=== PATIENT | female | born 1985 | race Caucasian/White ===

== ENCOUNTER → 2024-06-20 | Outpatient (CLI) | payer OTHER, SELFPAY ==
[2024-06-20 10:12] LABS: Vitamin D,25 Hydroxy 97.7 ng/mL
[2024-06-20 11:49] LABS: Anion Gap 8 (5-15); BUN 14 mg/dL (7-18); BUN/Creat Ratio 15.9 RATIO (10-20); Calcium,Total 9.4 mg/dL (8.5-10.1); Chloride 104 mmol/L (98-107); Creatinine, Serum 0.88 mg/dL (0.55-1.02); EST Glomerular Filtration Rate 76 mL/min (>60); Est Glom Filt Rate - Afr Amer 92 mL/min (>60); Glucose 94 mg/dL (74-106); Sodium Level 137 mmol/L (136-145)
== END | disposition home or self-care (01) ==
PROVIDERS: PCP Nurse Practitioner Family; Referring Provider Internal Medicine Endocrinology, Diabetes & Metabolism; Visit Provider Internal Medicine Endocrinology, Diabetes & Metabolism
DX: E03.8 Other specified hypothyroidism (principal); E55.9 Vitamin D deficiency, unspecified
CPT/HCPCS: 36415; 80048; 82306; 84443

== ENCOUNTER 2024-06-30 19:53 | Emergency (ER) | payer OTHER, SELFPAY ==
[2024-06-30 19:54] VITALS: BP 149/89; PULSE 112; RESP 18; TEMP 36.8; O2SAT 97; BMI 30.4
--- NOTE | 2024-06-30 19:59 | EKG12_ITS ---
Test Reason : DYSRHYTHMIA Blood Pressure : / mmHG Vent. Rate : 104 BPM Atrial Rate : 104 BPM P-R Int : 146 ms QRS Dur : 080 ms QT Int : 354 ms P-R-T Axes : 064 066 069 degrees QTc Int : 465 ms Sinus tachycardia Low voltage QRS Borderline ECG Confirmed by JOE BAEZ, BLUE ([id number]), publication editor JULIEN DIETZ ([id number]) on 07/02/2024 8:09:05 AM Referred By: Confirmed By:BLUE DIAZ MD
[2024-06-30] MEDS: Ondansetron 4 MG/2 ML Vial IV (20:35)
[2024-06-30] MEDS: Ketorolac 15 MG/ML Vial IV (20:35)
[2024-06-30] MEDS: Morphine 4 MG/ML Syringe IV (20:36)
[2024-06-30 20:39] VITALS: O2SAT 96
[2024-06-30 20:39] LABS: Absolute Lymphocyte Count 3.19 X10^3/uL (0.83-4.51); Absolute Neutrophil Count 5.2 X10^3/uL (2.0-7.7); Basophil# 0.05 X10^3/uL; Basophil% 0.5 % (0-1); Eosinophil# 0.12 X10^3/uL; Eosinophils% 1.3 % (0-5); Hematocrit 39.3 % (37-47); Hemoglobin 13.3 g/dL (12.0-15.0); Lymphocyte # 3.19 X10^3/ul (0.83-4.51); Lymphocyte % 34.8 % (19-41); Mean Corp Hgb Conc 33.8 g/dL (32-36); Mean Corpuscular Hgb 31.1 pg (27.0-32.0); Mean Platelet Vol. 9.8 fl (6.2-12.0); Monocyte# 0.61 X10^3/uL; Monocyte% 6.7 % (0-10); NRBC Flagged by Analyzer 0 % (0-5); Neutrophil # 5.17 X10^3/uL (2.7-7.7); Neutrophil % 56.5 % (47-70); Platelet Count 301 K/mm3 (150-450); RBC Distribution Width CV 12.3 % (11.6-14.6); RBC Distribution Width SD 41.1 fl (35.1-43.9); Red Blood Count 4.27 M/mm3 (4.2-5.4); White Blood Count 9.2 K/mm3 (4.4-11.0)
[2024-06-30 20:42] LABS: Internal QC Validated? YES +Cl - CLEAR BKGD; Pregnancy, Serum, hCG Quali. NEGATIVE Negative
[2024-06-30 20:48] LABS: ALB/GLOB Ratio 1.1 RATIO (0.9-2.4); AST(SGOT) 16 U/L (15-37); Alanine Aminotransfer ALT/SGPT 19 U/L (13-56); Albumin, Serum 3.9 g/dL (3.2-5.0); Alkaline Phosphatase 44 U/L (45-117); Anion Gap 9 (5-15); BUN 17 mg/dL (7-18); BUN/Creat Ratio 18.2 RATIO (10-20); Calcium,Total 9.3 mg/dL (8.5-10.1); Chloride 105 mmol/L (98-107); Creatinine, Serum 0.93 mg/dL (0.55-1.02); EST Glomerular Filtration Rate 71 mL/min (>60); Est Glom Filt Rate - Afr Amer 86 mL/min (>60); Globulin 3.5 g/dL (2.2-4.2); Glucose 135 mg/dL (74-106); Lipase 120 U/L (13-75); Potassium 3.6 mmol/L (3.5-5.1); Protein, Total 7.4 g/dL (6.4-8.2); Sodium Level 139 mmol/L (136-145); Troponin-I HS < 3 pg/mL (3.0-54.0)
--- NOTE | 2024-06-30 20:55 | RAD_ITS ---
INDICATION: chest pain EXAMINATION/TECHNIQUE: X-RAY - XR Chest 1 View COMPARISON: No relevant prior comparison study available FINDINGS: LINES/DEVICES: None. LUNGS: The lungs are well expanded. No consolidation, edema or effusion. No pneumothorax. MEDIASTINUM AND CARDIOVASCULAR STRUCTURES: Cardiac silhouette not enlarged. Central airways and mediastinal contour are unremarkable. BONES AND SOFT TISSUES: No acute abnormality. RAD/Chest 1 View (Portable) IMPRESSION: No acute pulmonary finding. Electronically Signed: Anthony Ellison MD at 21:13 EDT ,
[2024-06-30 20:57] LABS: Bacteria 0 SEEN /hpf (None Seen); Mucous, Urine 0 SEEN /hpf (<or=2+)
[2024-06-30 21:02] LABS: Color, Urine Yellow (Yellow); Glucose, Dipstick Normal (Normal); Ketone-Dipstick Negative (Negative); Leukocyte Esterase-Dipstick Negative /ul (Negative); Nitrite-Dipstick Negative (Negative); Occult Blood-Urine Negative /ul (Negative); Protein-Dipstick Negative (Negative); Specific Gravity, Urine 1.015 (1.002-1.030); Urine Bilirubin Dipstick Negative (Negative); Urine Clarity Clear (Clear); Urine Urobilinogen Normal (Normal)
--- NOTE | 2024-06-30 21:03 | EX.ED.DYSGE1 ---
HPI History of Present Illness Chief Complaint: Abd Pain Detail of Chief Complaint: Right upper quadrant abdominal pain Informant: patient and spouse/S.O. Onset/Context/Timing Onset: Today and Hours Context: Sudden Onset Timing: Continuous and Waxes and wanes Quality: Colicky Location: Right upper quadrant radiating through to her back Current Severity: Severe Maximum Severity: Severe Worsened by: Having Posta with red sauce buttered bread sticks and Ga's cup Relieved by: Nothing Associated Symptoms Associated Symptoms: Nausea Narrative Narrative: Patient is a 39-year-old woman. She has no strict past medical history. She has no allergies. She had pasta with red sauce with butter garlic bread sticks. She started to have pain approximate 2 hours afterwards. She then had a recedes cup which made the pain worse. Pain is in the right upper quadrant radiates bilaterally to the central mid back. She never experienced anything like this before. She denies cardiac respiratory symptoms. She denies diarrhea. She does report nausea. She has had no vomiting. She denies history of renal or ureteral calculus. Denies dysuria, frequency, urgency or hematuria. Prior similar symptoms: No Recent Illness/Hospitalization: No [facility] Medical History Interstitial cystitis Raynaud disease Hypothyroid Home Medications ?Medication ?Instructions ?Recorded ?Last Taken ?Type hydrocodone-acetaminophen 5-325mg 1 tab PO Q6H PRN PRN Pain 3 days 06/30/24 Unknown Rx 5mg-325mg #10 TABLETS naproxen 500 mg tablet 500 mg PO BID #14 tabs 06/30/24 Unknown Rx Allergy/AdvReac Type Severity Reaction Status Date / Time No Known Allergies Allergy Verified 06/30/24 20:00 Social History Smoking Status: Former smoker ROS ROS ED Constitutional Constitutional ED: Denies chills, fever(s), subjective or sweats ENT ENT ED: Denies rhinorrhea or sore throat Cardiovascular Cardiovascular: Denies chest pain or palpitations Respiratory/Chest Respiratory/Chest: Denies cough, dyspnea or dyspnea on exertion Gastrointestinal Gastrointestinal: Reports abdominal pain and nausea; Denies constipation, diarrhea, melena or vomiting Genitourinary Genitourinary ED: Denies dysuria, hematuria or urinary frequency Musculoskeletal Musculoskeletal: Denies arthralgias, back pain, myalgias or neck pain Integumentary Denies rash EXAM Physical Exam Const Vital Signs: 06/30/24 19:54 06/30/24 20:39 06/30/24 20:40 Temperature 98.2 F Temperature Source Temporal Pulse Rate 112 H Respiratory Rate 18 Respiratory Effort Normal Blood Pressure 149/89 H Blood Pressure Mean 109 Pulse Ox 97 96 Oxygen Delivery Method Room Air Room Air Positive well nourished and well developed Constitutional Narrative: Patient did have his discomfort with her hips flexed and hand over her abdomen. General Appearance ED: well developed; Negative for NAD or pallor HEENT Reports moist mucous membranes HEENT Narrative: Head is atraumatic normocephalic. Ears normal. Posterior pharynx is normal. Eyes PERRL and EOMs intact bilaterally General Eye ED: Negative for pale conjunctiva or scleral icterus Neck no lymphadenopathy, supple and no JVD Resp normal respiratory effort and clear to auscultation bilaterally Cardio regular rhythm, S1 normal heart sound, S2 normal heart sound and no murmurs Rate: tachycardic GI normal to inspection, nondistended, normoactive bowel sounds, non-tender, non-distended and no masses; Negative for hepatosplenomegaly Palpation: tender RUQ and Jewell's sign Back/Spine no CVA tenderness Extremity normal to inspection General Extremety ED: Negative for edema or tenderness General Extremity: Negative for edema Neuro oriented x3 and CN's II-XII intact bilaterally Sensorium / Orientation: alert Skin no rashes or lesions noted, no wounds and skin turgor normal General Skin Exam: elasticity normal; Negative for jaundice or pallor MDM MDM MDM Narrative Medical decision making narrative: Differential diagnosis would include biliary colic, cholelithiasis, cholecystitis, renal/ureterolithiasis with hydronephrosis, peptic ulcer disease,, pain of unknown etiology. Workup included CBC, liver profile, electrolyte panel and lipase. Nurse protocol orders were placed. There was an EKG and chest x-ray ordered as well. I have not seen the EKG. My opinion EKG is not needed and was not reviewed. Lab Data Attestation: I reviewed the patient's lab results. Lab results narrative: CBC is normal. Electrolyte panel is remarkable for glucose 135 with normal CO2 anion gap. Troponin was normal. Lipase was slightly elevated 120. Alkaline phosphatase is low. AST and ALT are normal. Labs: Laboratory Results - last 24 hr 06/30/24 20:15 WBC 9.2 RBC 4.27 Hgb 13.3 Hct 39.3 MCV 92.0 MCH 31.1 MCHC 33.8 RDW Std Deviation 41.1 RDW Coeff of German 12.3 Plt Count 301 MPV 9.8 Immature Gran % (Auto) 0.200 Neut % (Auto) 56.5 Lymph % (Auto) 34.8 Harnett % (Auto) 6.7 Eos % (Auto) 1.3 Baso % (Auto) 0.5 Absolute Neuts (auto) 5.2 Absolute Lymphs (auto) 3.19 Nucleated RBC % 0 Sodium 139 Potassium 3.6 Chloride 105 Carbon Dioxide 25.0 Anion Gap 9 BUN 17 Creatinine 0.93 Estim Creat Clear Calc 80.30 Est GFR (MDRD) Af Amer 86 Est GFR (MDRD) Non-Af 71 BUN/Creatinine Ratio 18.2 Glucose 135 H Calcium 9.3 Total Bilirubin 0.30 AST 16 ALT 19 Alkaline Phosphatase 44 L Troponin I High Sens < 3 L Total Protein 7.4 Albumin 3.9 Globulin 3.5 Albumin/Globulin Ratio 1.1 Lipase 120 H Serum , Qual NEGATIVE Radiography Chest X-Ray - ED: 1 View, Read by ED Physician, Normal, Heart, Lungs, Mediastinum, Bony Structures and No Acute Disease Discharge Plan Triage Chief Complaint: Abd Pain Other Complaint: Chest Pain ED Provider: WebsterJeremiah Dx/Rx/DC Orders Clinical Impression: Right upper quadrant pain, Nausea, Sinus tachycardia, Elevated blood pressure reading without diagnosis of hypertension Instructions: ED Abdominal Pain Gallstone Poss, ED Hypertension, To Be Confirmed Prescriptions: New hydrocodone-acetaminophen 5-325 mg tablet 1 tab PO Q6H PRN PRN (Reason: Pain) 3 Days Qty: 10 0RF naproxen 500 mg tablet 500 mg PO BID Qty: 14 0RF Primary Care Provider: Fanny Springer Referrals: Jd Burrell MD [Med Staff - Active Staff] - As Needed Fanny Springer, CANE PILER-C [Primary Care Provider] - 3-5 Days Activity Restrictions/Additional Instructions: 1. Avoid any greasy, fried foods or anything with water or is rich or fatty. 2. You were given the name of Dr. Jd Burrell in the event that your ultrasound is positive. Print Language: Lao Disposition Disposition: Home, Self Care
[2024-06-30 21:23] LABS: Red Blood Cells-Urine 0-5 SEEN /hpf (0-5); Squamous Epithelial Cells - UA 0-5 SEEN /hpf (5-10); White Blood Cells 0-5 SEEN /hpf (0-5)
[2024-06-30 21:34] VITALS: BP 104/64; PULSE 64; RESP 16; TEMP 36.6; O2SAT 99
== END 2024-06-30 21:36 | disposition home or self-care (01) ==
PROVIDERS: Emergency Provider Emergency Medicine; PCP Nurse Practitioner Family; Visit Provider Emergency Medicine
DX: R10.11 Right upper quadrant pain (principal); R03.0 Elevated blood-pressure reading, without diagnosis of hypertension; R11.0 Nausea; R00.0 Tachycardia, unspecified; Z87.891 Personal history of nicotine dependence
CPT/HCPCS: 71045; 80048; 80053; 81001; 83690; 84484; 84703; 85025; 93005; 96374; 96375; 99285; A4216; J2405

== ENCOUNTER → 2024-07-03 | Outpatient (CLI) | payer OTHER, SELFPAY ==
--- NOTE | 2024-07-03 09:15 | US_ITS ---
STUDY: ABDOMINAL ULTRASOUND - RIGHT UPPER QUADRANT REASON FOR VISIT: Female, 39 years old Right upper quadrant colicky pain after greasy bean TECHNIQUE: Ultrasound evaluation of the right upper quadrant was performed with real-time and static del rio-scale imaging. TECHNICAL QUALITY: Adequate. COMPARISON: None. FINDINGS: Liver: The liver measures 14.4 cm. There is normal echogenicity of the liver. The bile ducts are within normal limits. There is hepatic color flow. The direction of portal flow is hepatopetal. There is no demonstrated mass lesion. Gallbladder: Normal distended gallbladder. The gallbladder wall measures 3.2 mm. There is a negative sonographic Jewell''s sign. There is no pericholecystic fluid. There are multiple echogenic structures within the gallbladder, consistent with multiple gallstones. Common Bile Duct (C.B.D.): The common bile duct measures 1.8 mm. Pancreas: Normal size of the head, body and tail of the pancreas. There is normal echogenicity of the pancreas. There is no demonstrated pancreatic mass or cyst. Right Kidney: Normal size of the right kidney. The right kidney measures 10.6 cm x 5.5 cm x 3.7 cm. Normal renal cortex. The right cortex measures 1.3 cm. There is no demonstrated renal mass or cyst. There is no right hydronephrosis. US/Gallbladder IMPRESSION: Multiple gallstones. Electronically Signed: Sanjeev Evans MD at 10:25 EDT ,
== END | disposition home or self-care (01) ==
LOC: US 09:14
PROVIDERS: PCP Nurse Practitioner Family; Referring Provider Emergency Medicine; Visit Provider Emergency Medicine
DX: R10.11 Right upper quadrant pain (principal)
CPT/HCPCS: 76705

== ENCOUNTER → 2024-07-09 | Outpatient (CLI) | payer OTHER, SELFPAY ==
[2024-07-09 10:47] LABS: AST(SGOT) 16 U/L (15-37); Alanine Aminotransfer ALT/SGPT 73 U/L (13-56); Albumin, Serum 3.9 g/dL (3.2-5.0); Alkaline Phosphatase 55 U/L (45-117); Bilirubin, Direct 0.11 mg/dL (0.00-0.30); Globulin 3.4 g/dL (2.2-4.2); Lipase 99 U/L (13-75); Protein, Total 7.3 g/dL (6.4-8.2)
== END | disposition home or self-care (01) ==
LOC: PAVLAB 09:58
PROVIDERS: PCP Nurse Practitioner Family; Referring Provider Surgery; Visit Provider Surgery
DX: K80.20 Calculus of gallbladder without cholecystitis without obstruction (principal)
CPT/HCPCS: 36415; 80076; 83690

== ENCOUNTER 2024-07-18 08:30 | Day surgery (SDC) | payer OTHER, SELFPAY ==
[2024-07-18] VITALS (9 sets, daily range): BP systolic 113–128; BP diastolic 64–83; PULSE 82–101; RESP 16–18; TEMP 36.8–37.6; O2SAT 94–100
--- NOTE | 2024-07-18 | GALL_PTH ---
PATIENT: DESMOND MCDNOOUGH LOC: [facility] U#:[id number] AGE/SX: 39/F ROOM: RE07/18/[address]: Dr. Diana Farfan MD : 1985 BED: DIS: 07/18/2024 SPEC #: [id number] RECD: 07/18/24 11:02 STATUS: LILIBETH COLBY #: [id number] DONALD: 07/18/24 00:[address]: Diana Farfan DEPT: SURGICAL PATHOLOGY RECD BY: Santy Yoon ENTERED: 07/19/24 11:03 SP TYPE: HEATHER LEIVA DR: Fanny Springer, POLIC[employer] WRITER [employer]ES-C Tissues: Gallbladder, NOS Procedures: Surgery Specimen Level III HEADER OPERATION: Laparoscopic, cholecystectomy with IOC PRE-OP DIAGNOSIS: Cholelithiasis, abdominal pain TISSUE SUBMITTED: Gallbladder MICROSCOPIC DIAGNOSIS Gallbladder, cholecystectomy: Chronic cholecystitis, cholelithiasis and cholesterolosis. SJ.mr 07/22 MICROSCOPIC DESCRIPTION Slides are reviewed. GROSS DESCRIPTION Received is one container labeled with the patient's name and designated gallbladder. The specimen consists of a gallbladder measuring 7.5 cm in length and up to 3.0 cm in diameter. The external surface is pink-freitas, smooth and glistening for the most part. Focally it is granular, hemorrhagic and contains cautery artifact. The gallbladder contains green-yellow bile and six mulberry yellow-green stones. Four smaller stones measuring in aggregate 1.0 x 0.5 x 0.3 cm and 0.1 to 0.3cm in greatest dimension. Two larger stones measures 1.7 and 1.5cm in greatest dimension. The mucosa is bile-stained and without any mass lesions. The gallbladder wall measures up to 0.3 cm in thickness. The mucosa also shows several yellowish streaks consistent with cholesterolosis. Timber Hewer sections from the gallbladder and the cystic duct are submitted in one cassette. / SJ: 07/19/2024 TC:3 CPT: 10856
--- NOTE | 2024-07-18 08:37 | HP.PCM_ITS ---
History and Physical Date of Admission: 07/18/24 Date of Service: 07/09/24 MR#: [id number] Acct: [id number] Name: DESMOND MCDONOUGH Rep #: [id number] : 1985 Provider: Dr. Diana Farfan MD Age/Sex: 39/F Location: [facility] Status: Signed Intake Vital Signs 06/30/2419:54 07/09/2409:29 Height 5 ft 3 in 5 ft 3 in Weight: 170 lb BMI 30.1 BP 112/82 H Blood Pressure Location Rt brachial Position Sitting Respiration 18 Pulse 72 Pulse Source Monitor Temp 97.2 F L Temp Source Temporal Pulse Oximetry (%) 99 Oxygen Delivery Method room air Intake Visit Reasons: GALLBLADDER Chief Complaint: gallbladder Accompanied by: Is patient in pain?: No Allergies No Known Allergies Allergy (Verified 07/09/24 09:30) PFSH Medical History (Updated 07/09/24 @ 09:[address] Diana Farfan MD) Gallbladder attack Nausea Thyroid disease Abdominal pain Interstitial cystitis Raynaud disease Hypothyroid Surgical History (Updated 07/09/24 @ 09:29 by Alaina Lynn LPN) H/O: hysterectomy H/O ovarian cystectomy Social History (Updated 07/09/24 @ 09:29 by Alaina Lynn LPN) Smoking Status: Former smoker alcohol intake: current alcohol intake frequency: holidays/special occasions only substance use type: does not use HPI HPI HPI: 39-year-old female presents with her due to gallstones and abdominal pain. Patient did go to the ER on 06/30 due to epigastric pain wrapping around her sides at 7 PM patient last ate at 3 PM. Patient's labs are within normal limit except for a lipase of 120. Patient did have an outpatient ultrasound showed multiple gallstones called the wall 3.2 mm. Patient states she also had a tach early Monday a.m. at 1230 patient states she last ate at 7 PM unsure what she ate. Patient states since then she has been good no more further attacks but does have minimal pain with palpation. Patient has lost about 50 pounds this year was previously on Mounjaro but did quit in October. ROS General General: Yes weight change (loss); No appetite, fatigue, colon cancer, breast cancer or weakness HEENT HEENT: No difficulty swallowing, eye injury, eye surgery, swollen glands or hoarseness Endo Endocrine: Yes thyroid disease; No diabetes mellitus, thyroid cancer, Hair loss, heat intolerance or cold intolerance Skin Skin: No rash or changing moles Musc Musculoskeletal: No back problems, arthritis, rheumatoid arthritis, gout or joint pain Cardio Cardiovascular: No murmur, pacemaker, heart disease, atrial fibrillation, high blood pressure, heart attack, heart stent, palpitations, shortness of breat with exertion or chest pain Psych Psychiatric: No depression, anxiety or hearing voices Resp Respiratory: No shortness of breath, No sleep apnea, No cough, No COPD, No asthma, No emphysema and No wheezing Gastro Gastrointestinal: Yes abdominal pain, Yes nausea or vomiting, No diarrhea, No constipation, No blood in stool, No acid reflux, No hemorrhoids, No ulcers, Yes gallbladder problem and No black,tarry stools Brodie Hematologic: No blood thinners, No blood disorders, No bleeding, No anemia and No blood clots Neuro Neurologic: No numbness, No tingling and No weakness Exam Const General: cooperative, healthy appearing, comfortable and no acute distress [facility] Head: normocephalic and atraumatic Neck Neck: supple Resp Effort & Inspection: normal respiratory effort Cardio Rate: regular rate GI Inspection: non-distended Palpation: soft, no hernias and tender in the epigastrum (mild); with no rebound tenderness Skin General: no rashes or lesions noted Neuro General: CN's II-XI intact bilaterally Extrem General: normal to inspection Psych Mental Status: mental status grossly normal Attitude: cooperative Assessment and Plan Assessment and Plan (1) Cholelithiases: Status: Acute (2) Abdominal pain: Status: Acute Orders: Orders Lipase Today K80.20 - Calculus of gallbladder without cholecystitis without obstruction Liver Profile Today K80.20 - Calculus of gallbladder without cholecystitis without obstruction Medications: New omeprazole swallow whole; do not crush, chew, dissolve, cut, break--take in PM due to levothyroxine 40 mg PO QDAY 30 caps 0RF Discontinued hydrocodone-acetaminophen 5-325 mg Discontinued Reason: Pt no longer taking 1 TAB PO Q6H PRN 3 days PRN 10 TABLETS 0RF Pain K80.50 - Calculus of bile duct without cholangitis or cholecystitis without obstruction naproxen Discontinued Reason: Pt no longer taking 500 mg PO BID 14 tabs 0RF Plan Will plan to recheck liver functions and lipase as patient did have an elevated lipase 06/30. 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 Would not be typical for gallbladder however patient's ultrasound does show multiple gallstones patient has had weight loss and her previous attack was closer to after eating and did have an elevated lipase. Patient stay on omeprazole for perioperative time. Patient will also avoid any fatty greasy foods. Reviewed the anatomy with the patient and discussed the procedure: laparoscopic cholecystectomy with cholangiograms, possible open. Review risks including but not limited to bleeding, infection, hernia, bile leak, retained gallstones requiring another procedure ERCP- Endoscopic Retrograde Cholangiopancreatography, injury to another organ (bile ducts, common bile duct, small bowel, etc.) and conversion to an open procedure. All questions were answered. Diana Farfan M.D. Pager: [phone] [facility] [address] [place] [address], [address] [place] [address] Office: [phone] Coding Level of Care Code Off vis,new,level 3 Diagnoses Cholelithiases K80.20 Abdominal pain R10.9 07/09/24 0954 <Electronically signed by Diana Farfan MD> Date Diana Farfan MD
--- NOTE | 2024-07-18 08:38 | EKG12_ITS ---
Test Reason : PRE OP Blood Pressure : / mmHG Vent. Rate : 092 BPM Atrial Rate : 092 BPM P-R Int : 144 ms QRS Dur : 084 ms QT Int : 348 ms P-R-T Axes : 051 025 050 degrees QTc Int : 430 ms Normal sinus rhythm Normal ECG No previous ECGs available Confirmed by Jd Cedeño ([id number]), commercial production editor JULIEN DIETZ ([id number]) on 07/22/2024 1:23:35 PM Referred By: Diana Farfan Confirmed By:Jd Cedeño
--- NOTE | 2024-07-18 09:00 | RAD_ITS ---
STUDY: INTRAOPERATIVE CHOLANGIOGRAM. REASON FOR EXAM: Female, 39 years old. Laparoscopic cholecystectomy. FLUOROSCOPY TIME (if supplied): ( 16 seconds ) minutes/seconds. 5.57 mGy. TECHNIQUE: Attempted cholangiogram. COMPARISON: None. FINDINGS: Unsuccessful cholangiogram. RAD/Cholangiogram/ O R,Initial IMPRESSION: Unsuccessful cholangiogram. Electronically Signed: Sanjeev Evans MD at 15:25 EDT ,
--- NOTE | 2024-07-18 09:02 | PRE.ANES_ITS ---
ASA Classification* ASA Classification ASA Classification: 2 Assessment & Plan Anesthesia* Anesthesia Assessment Anesthesia Assessment: Discussed sedation and/or anesthesia options, risks, benefits, and alternatives with patient/parents/legal guardian/POA. Questions invited. The patient/parents/legal guardian/POA seems to understand and agrees to proceed with anesthesia plan. Reviewed the physical assessment, medical history, allergy history and patient home medications list prior to surgery/procedure/anesthetic and documented any changes. Performed airway and anesthesia risk assessments. Anesthesia Type Anesthesia Type: General (see written pre anesthesia record for full assessment) Anesthesia Focused Assessment* Airway Assessment Mouth opens: >3 cm Mallampati Score: II Focused Labs Anesthesia Preop lab: CBC WBC 9.2 K/mm3 (4.4-11.0) 06/30/24 20:15 RBC 4.27 M/mm3 (4.2-5.4) 06/30/24 20:15 Hgb 13.3 g/dL (12.0-15.0) 06/30/24 20:15 Hct 39.3 % (37-47) 06/30/24 20:15 Plt Count 301 K/mm3 (150-450) 06/30/24 20:15 CHEMISTRY Potassium 3.6 mmol/L (3.5-5.1) 06/30/24 20:15 Sodium 139 mmol/L (136-145) 06/30/24 20:15 BUN 17 mg/dL (7-18) 06/30/24 20:15 Creatinine 0.93 mg/dL (0.55-1.02) 06/30/24 20:15 Glucose 135 mg/dL (74-106) H 06/30/24 20:15 TSH 1.330 uIU/mL (0.358-3.740) 06/20/24 09:26 COAG Pre-Assessment Diagnosis/Proposed Procedure Planned Operative Procedure(s): Laparoscopic, Cholecystectomy with IOC Anesthesia History 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 When Was Last Pacemaker Check QUESTION #4 FULL TEXT: You/Your Family Experience fever (hyperthermia) with Anesthesia Last Oral Intake Last Oral intake: Last Oral Intake NPO since Meds taken in AM with sips of water? Meds patient instructed to take am of surgery PONV PONV - police patrol officer: PONV - police patrol officer Female Yes 07/15/24 11:24 HX of Motion Sickness Yes 07/15/24 11:24 HX of N/V After Surgery No 07/15/24 11:24 Non-Smoker Yes 07/15/24 11:24 Duration of Surgery greater Yes 07/15/24 11:24 than 60 minutes Number of Risk Factors 4 07/15/24 11:24 PONV Score Severe Risk 07/15/24 11:24 Height & Weight Height & Weight: Anesthesia: Height & Weight Height 5 ft 3 in 07/09/24 09:29 Respiratory Assessment Respiratory Assessment - police patrol officer: Respiratory Tract Infection Hx - police patrol officer Hx Respiratory Tract Infection No 07/15/24 11:24 STOP Sleep Apnea STOP Sleep Apnea - police patrol officer: STOP Sleep Apnea - police patrol officer Hx Hypertension No 07/15/24 11:24 Hx Sleep Apnea No 07/15/24 11:24 CPAP BIPAP Do you snore loudly (louder Yes 07/15/24 11:24 than talking or can be heard Do you often feel tired/ No 07/15/24 11:24 fatigued/ sleepy during daytime? Has anyone observed you stop No 07/15/24 11:24 breathing during sleep? STOP Results Negative 07/15/24 11:24 QUESTION #5 FULL TEXT : Do you snore loudly (louder than talking or can be heard through closed doors)? 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 Specify any problems Hx of Preganancy in last 3 No 07/15/24 11:24 Months Nurse Filling Out Transfusion VCHRISTIN 07/15/24 11:24 & Questions: Date: 07/15/24 07/15/24 11:24 Time: 11:25 07/15/24 11:24 Patient unable to answer at this time (ie. confused, unrespo /Reproduction History /Reproductive History - police patrol officer: /Reproductive Hx- police patrol officer Hx Now No 07/15/24 11:24 Gestational Age (in weeks): EDC: Hx Hx Para Hx Section SAB No 07/15/24 11:24 Active Medications Active Medications: Current Medications Generic Name Dose Route Start Last Admin Trade Name Freq PRN Reason Stop Dose Admin Cefazolin Sodium 2 gm/ Sodium 110 mls @ 150 mls/hr 07/18/24 10:00 Chloride IV 07/18/24 10:43 PREOP ONE Lactated Ringer's 1,000 mls @ 15 mls/hr 07/18/24 08:45 IV .Q48H TARYN PFSH Medical History (Updated 07/15/24 @ 11:24 by Gala Perez) Wears glasses Post-menopausal Alcohol use Se's disease Migraine headache Former smoker History of echocardiogram Metabolic syndrome Gallbladder attack Thyroid disease Abdominal pain Nausea Interstitial cystitis Raynaud disease Hypothyroid Home Medications ?Medication ?Instructions ?Recorded ?Last Taken ?Type ergocalciferol (vitamin D2) 1,250 1,250 mcg PO .EVERY OTHER WEEK 07/09/24 Unknown History mcg (50,000 unit) capsule levothyroxine 112 mcg tablet 112 mcg PO QDAY 07/09/24 07/18/24 History mecobalamin (vitamin B12) 500 mcg 500 mcg PO DAILY 07/09/24 Unknown History chewable tablet metformin 750 mg tablet,extended 1,500 mg PO DAILY 07/09/24 Unknown History release 24 hr nifedipine 60 mg tablet,extended 60 mg PO QPM 07/09/24 Unknown History release 24 hr omeprazole 40 mg capsule,delayed 40 mg PO QDAY #30 caps 07/09/24 Unknown Rx release Allergy/AdvReac Type Severity Reaction Status Date / Time No Known Allergies Allergy Verified 07/18/24 08:56 Surgical History (Updated 07/15/24 @ 11:24 by Gala Perez) History of endometrial ablation H/O: hysterectomy H/O ovarian cystectomy Social History (Updated 07/09/24 @ 09:29 by Alaina Lynn LPN) Smoking Status: Former smoker alcohol intake: current alcohol intake frequency: holidays/special occasions only substance use type: does not use Review of Systems (Anesthesia) ROS Narrative System reviewed and no additional complaints, except as documented.
[2024-07-18] MEDS: Lactated Ringers 1,000 ML 15 ML IV (09:07)
[2024-07-18] MEDS: Cefazolin 2 GM in 0.9% Normal Saline (100mL Bag) 100 ML IV (10:15)
[2024-07-18] MEDS: Bupivacaine Mpf 0.5% 30 ML VIAL (10:44)
--- NOTE | 2024-07-18 11:34 | OP.PCM_ITS ---
Report of Operation Date of Procedure: 07/18/24 Pre-Operative Diagnosis: Cholelithiasis, epigastric/right upper quadrant abdomi nal pain Post-Operative Diagnosis: Same Surgery/Procedure Performed:: Laparoscopic cholecystectomy with attempted cholangiograms Surgeon: Diana Farfan manufacturing shift supervisor: Charlotte Schofield Type of Anesthesia: General/Supplemental Anesthesiologist: Mushtaq Aguila Special Medications: Ancef 2 g IV x 1 Specimen's removed: Gallbladder Estimated Blood Loss (mL): 20 cc Description of Procedure: Indications: this is a 39 year-old female who developed abdominal pain/nausea/vomiting and on workup was found to have cholelithiasis, with a normal common bile duct. Laparoscopic cholecystectomy was elected. Description procedure: The patient was placed on operating table in supine position. A timeout was completed verifying correct patient, procedure, site, position and special equipment prior to beginning procedure. General Anesthesia was induced. The abdomen was prepped and draped in usual sterile fashion. An incision was made in the natural skin line above the umbilicus. The fascia was elevated and incised. The peritoneum was elevated and incised. Entry into the peritoneum was confirmed visually and no bowel was noted in the vicinity of the incision. Warner trocar was placed. The abdomen was insufflated with carbon dioxide to a pressure of 12-15 mmHg. Patient tolerated insufflation well. The laparoscope was then inserted and a bdomen inspected. No injuries from initial trocar placement were noted. Additional trochars were then inserted in the following locations 5 mm trocar in the epigastrium and 2 more 5 mm trochars along the right costal margin. The abdomen was inspected no abnormalities were found. The table is placed in reverse Trendelenburg position with the right side up. The dome of the gallbladder was grasped with atraumatic grasper passed through the lateral port and retracted over the dome of the liver. Infundibulum was then grasped with atraumatic grasper through the midclavicular port and retracted to the right lower quadrant. This maneuver exposed Calot's triangle. The peritoneum overlying the gallbladder infundibulum was then incised and cystic duct and artery identified and circumferentially dissected. Alonzo catheter and Ranfac catheter were attempted for cholangiograms which were unable to be completed were used for cholangiograms. Additional small incision made in right upper quadrant to accommodate the Ranfac catheter. The cystic duct and artery were then doubly clipped and divided close to the gallbladder. The gallbladder then dissected from its peritoneal attachments by electrocautery. Gallbladder was noted to be partially intrahepatic. Odalis was used for hemostasis. Hemostasis was checked and the gallbladder and contained stones were removed using the endoscopic retrieval bag through the umbilical port. The gallbladder is passed off table as specimen. The gallbladder fossa was irrigated with saline and hemostasis obtained. There is no evidence of bleeding from the gallbladder fossa or cystic artery leakage of bile from the cystic duct stump. Secondary trochars removed under direct vision. No bleeding was noted the trocar sites. The laparoscope was withdrawn and umbilical trocar removed. The abdomen was allowed to collapse. The fascia of the 12 mm trocar was closed with a [id number] 0 Vicryl suture. The skin was closed with sutures of 4-0 Monocryl and Steri-Strips. The patient was extubated. The patient tolerated procedure well and was taken to the postanesthesia care unit in stable condition. Complications none
--- NOTE | 2024-07-18 11:37 | DCINST_ITS ---
Discharge Instructions Diet Discharge Diet: Light diet - advance as tolerated Activity Discharge Activity: May Not Drive (while taking narcotic pain medications.) May shower in (days): 1 Lifting Restrictions: no lifting >20 lbs x 2 wks, no strenuous exercise for 4 wks Dressing / Incision Call your doctor if your incision/area has: Continuous Slow Oozing, Sudden Increased Bleeding, Increased Pain/ Swelling, Increased Redness, Foul Smelling Discharge and Swelling at the incision site Call your doctor if you observe: Fever of 101 or Higher Remove Dressing in: 2 days Cleanse incision/area with: Soap & Water Additional Dressing/Incision Instructions:: Steri-Strips will fall off in 7 to 10 days, if they do not fall off okay to remove after 10 days. Follow Up Care Please Follow Up With: Diana Farfan MD When: Call the office for a follow-up appointment 2 weeks; after 5 PM and on the weekends call [phone] with any concerns. Test Results: Test results from this visit will be discussed in further detail at your follow- up appointment, if applicable. Discharge Plan Admission Attending Provider: Diana Farfan Primary Care Provider: Fanny Springer Instructions Print Language: Italian Discharge Orders/Prescriptions Prescriptions: New oxycodone 5 mg capsule 5 mg PO Q6H PRN (Reason: pain) 3 Days Qty: 7 0RF Continued levothyroxine 112 mcg tablet 112 mcg PO QDAY ergocalciferol (vitamin D2) 1,250 mcg (50,000 unit) capsule 1,250 mcg PO .EVERY OTHER WEEK nifedipine 60 mg tablet extended release 24hr 60 mg PO QPM metformin 750 mg tablet extended release 24 hr 1,500 mg PO DAILY mecobalamin (vitamin B12) 500 mcg tablet,chewable 500 mcg PO DAILY omeprazole 40 mg capsule,delayed release(DR/EC) 40 mg PO QDAY Qty: 30 0RF Rx Instructions: swallow whole; do not crush, chew, dissolve, cut, break--take in PM due to levothyroxine Referrals / Follow Up: Fanny Springer, BOWLING OR SKATING FRONT DESK CLERK-C [Primary Care Provider] - Disposition Disposition (needs filled in before D/C Order can be placed): Home, Self Care
--- NOTE | 2024-07-18 11:51 | PCM.POST.ANE ---
Anesthesia: Postop Eval I Current Vital Signs Temperature: 98.2 F Pulse Rate: 92 Blood Pressure: 127/80 Respiratory Rate: 16 Pulse Ox: 95 Oxygen Delivery Method: Room Air Assessment Airway patent: Yes Spontaneous unlabored respirations: Yes Mental status: Awake and Calm nausea: No Vomiting: No Anesthesia Complication: No Fluid Hydration Crystalloid volume administer (ml): 1,000 Total IV fluid infused: 1,000 Progress Note Anesthesia document: Postop Eval 1 completed: Yes
[2024-07-18] MEDS: Ketorolac 30 MG/ML Syringe IV (12:29)
[2024-07-18] MEDS: Acetaminophen 500 MG Tablet 1000 MG PO (13:03)
--- NOTE | 2024-07-18 13:15 | POSTOPAN2_ITS ---
Anesthesia Postop Eval I Sum Postop Eval Completion status Anesthesia document: Postop Eval 1 completed: Yes Anesthesia Postop Eval I Summary Anesthesia Postop Eval I Summary: Anesthesia Postop Eval I: Assessment Summary Airway patent Yes 07/18/24 11:52 FAMILY LIVING EDUCATOR.[email or web address] Spontaneous unlabored Yes 07/18/24 11:52 FAMILY LIVING EDUCATOR.MONTSE respirations Mental status Awake,Calm 07/18/24 11:52 FAMILY LIVING EDUCATOR.MONTSE nausea No 07/18/24 11:52 FAMILY LIVING EDUCATOR.MONTSE Vomiting No 07/18/24 11:52 FAMILY LIVING EDUCATOR.MONTSE Anesthesia Postop Eval I: Fluid Summary Crystalloid volume administer 1,000 07/18/24 11:52 FAMILY LIVING EDUCATOR.MONTSE (ml) Colloids volume administered ( ml) Blood Product volume administered (ml) Total IV fluid infused 1,000 07/18/24 11:52 FAMILY LIVING EDUCATOR.MONTSE Anesthesia Postop Eval I: Summary Notes Anesthesia Complication No 07/18/24 11:52 IMANI Anesthesia Complication Comment: Post-operative progress note Anesthesia: Postop Eval II Evaluation Mental status: Awake Pain Level: 0 nausea: No Vomiting: No
--- NOTE | 2024-07-18 13:15 | PCM.POSTANE2 ---
Anesthesia Postop Eval I Sum Postop Eval Completion status Anesthesia document: Postop Eval 1 completed: Yes Anesthesia Postop Eval I Summary Anesthesia Postop Eval I Summary: Anesthesia Postop Eval I: Assessment Summary Airway patent Yes 07/18/24 11:52 GALVANIZER [email or web address] Spontaneous unlabored Yes 07/18/24 11:52 GALVANIZER ZINC.MONTSE respirations Mental status Awake,Calm 07/18/24 11:52 GALVANIZER ZINC.MONTSE nausea No 07/18/24 11:52 GALVANIZER ZINC.MONTSE Vomiting No 07/18/24 11:52 GALVANIZER ZINC.MONTSE Anesthesia Postop Eval I: Fluid Summary Crystalloid volume administer 1,000 07/18/24 11:52 GALVANIZER ZINC.MONTSE (ml) Colloids volume administered ( ml) Blood Product volume administered (ml) Total IV fluid infused 1,000 07/18/24 11:52 GALVANIZER ZINC.MONTSE Anesthesia Postop Eval I: Summary Notes Anesthesia Complication No 07/18/24 11:52 IMANI Anesthesia Complication Comment: Post-operative progress note Anesthesia: Postop Eval II Evaluation Mental status: Awake Pain Level: 0 nausea: No Vomiting: No
== END 2024-07-18 13:43 | disposition home or self-care (01) ==
LOC: SDC 08:30 → AC 08:31
PROVIDERS: PCP Nurse Practitioner Family; Referring Provider Surgery; Visit Provider Surgery
PROC: (CPT 47610; principal; 2024-07-18 09:45)
DX: K80.10 Calculus of gallbladder with chronic cholecystitis without obstruction (principal); Z79.890 Hormone replacement therapy; Z87.891 Personal history of nicotine dependence; Z79.899 Other long term (current) drug therapy; Q44.1 Other congenital malformations of gallbladder; Z79.84 Long term (current) use of oral hypoglycemic drugs; E03.9 Hypothyroidism, unspecified; E06.3 Autoimmune thyroiditis
CPT/HCPCS: 47563; 00790; 74300; 76000; 88304; 93005; J7120; J2405

== ENCOUNTER → 2024-09-19 | Outpatient (CLI) | payer OTHER, SELFPAY | END | disposition home or self-care (01) | LOC: OPBI 11:50 | PROVIDERS: PCP Nurse Practitioner Family; Referring Provider Nurse Practitioner Family; Visit Provider Nurse Practitioner Family | DX: Z12.31 Encounter for screening mammogram for malignant neoplasm of breast (principal) | CPT/HCPCS: 77063; 77067 ==

== ENCOUNTER → 2025-03-18 | Outpatient (CLI) | payer OTHER, SELFPAY ==
[2025-03-18 12:31] LABS: Hemoglobin 12.6 g/dL (12.0-15.0); Mean Corpuscular Hgb 32.4 pg (27.0-32.0); Mean Corpuscular Volume 92.5 fL (81-99); Mean Platelet Vol. 9.9 fl (6.2-12.0); Platelet Count 239 K/mm3 (150-450); RBC Distribution Width CV 12.1 % (11.6-14.6); RBC Distribution Width SD 40.8 fl (35.1-43.9); Red Blood Count 3.89 M/mm3 (4.2-5.4); White Blood Count 5.2 K/mm3 (4.4-11.0)
[2025-03-18 13:05] LABS: ALB/GLOB Ratio 1.5 RATIO (0.9-2.4); AST(SGOT) 15 U/L (<=31); Alanine Aminotransfer ALT/SGPT 11 U/L (<=34); Albumin, Serum 4.2 g/dL (3.5-5.0); Alkaline Phosphatase 37 U/L (35-104); Anion Gap 10 (5-15); BUN 11 mg/dL (4-19); BUN/Creat Ratio 13.1 RATIO (10-20); Calcium,Total 9.5 mg/dL (7.6-11.0); Carbon Dioxide 24.2 mmol/L (21.0-32.0); Chloride 104 mmol/L (98-108); Cholesterol 151 mg/dL (<=200); Creatinine, Serum 0.85 mg/dL (0.70-1.20); EST Glomerular Filtration Rate 88 (>60); Globulin 2.7 g/dL (2.2-4.2); Glucose 82 mg/dL (70-99); High Density Lipoprotein 47 mg/dL; Low Density Lipoprotein Calc. 89 mg/dL; Protein, Total 6.9 g/dL (5.9-8.4); Sodium Level 138 mmol/L (133-145); Total Bilirubin 0.47 mg/dL (0.00-1.30); Triglycerides 73 mg/dL; Very Low Density Lipoprotein 15 mg/dL (5-40); cholesterol:hdl ratio screen 3.19
[2025-03-18 13:22] LABS: Thyroid Stim Hormone (TSH) 0.088 uIU/mL (0.300-4.200); Vitamin B12 557 pg/mL (180-914); Vitamin D,25 Hydroxy 75.2 ng/mL (30-100)
[2025-03-18 13:37] LABS: Hemoglobin A1c 4.7 % (<=5.6)
== END | disposition home or self-care (01) ==
LOC: LAB 11:33
PROVIDERS: Internal Medicine Endocrinology, Diabetes & Metabolism; PCP Nurse Practitioner Family; Referring Provider Nurse Practitioner Family; Visit Provider Nurse Practitioner Family
DX: I73.00 Raynaud's syndrome without gangrene (principal); R73.03 Prediabetes; Z13.6 Encounter for screening for cardiovascular disorders; E03.9 Hypothyroidism, unspecified; E06.3 Autoimmune thyroiditis; E55.9 Vitamin D deficiency, unspecified
CPT/HCPCS: 36415; 80053; 80061; 82306; 82607; 83036; 84439; 84443; 85027

== ENCOUNTER → 2025-05-30 | Outpatient (CLI) | payer OTHER, SELFPAY | END | disposition home or self-care (01) | LOC: LAB 13:48 | PROVIDERS: PCP Nurse Practitioner Family; Referring Provider Internal Medicine Endocrinology, Diabetes & Metabolism; Visit Provider Internal Medicine Endocrinology, Diabetes & Metabolism | DX: E06.3 Autoimmune thyroiditis (principal) | CPT/HCPCS: 36415; 84439; 84443 ==

== ENCOUNTER → 2025-07-04 | Outpatient (CLI) | payer OTHER, SELFPAY | END | disposition home or self-care (01) | PROVIDERS: PCP Nurse Practitioner Family; Visit Provider Obstetrics & Gynecology | DX: Z13.6 Encounter for screening for cardiovascular disorders (principal) | CPT/HCPCS: 36415; 83695 ==

== ENCOUNTER → 2025-07-11 | Outpatient (CLI) | payer OTHER, SELFPAY ==
--- OUTSIDE RECORDS SUMMARY | 2025-07-11 12:43 | XMS RPT_ITS | CCD ---
Author Organization [facility] Care Team Providers Care Civil Service Clerk Name Role Phone CURT PALMER Attending Lexx lopez PHYSICIAN, NONE Primary Care Unavailable SHAKIRA CAPELLAN, PHILOMENA Peoples Primary Care Physicia n FANNY SPRINGER NP Consulting Unavailable PHILOMENA ROSENBERG CNP Admitting Unavailable PHILOMENA ROSENBERG CNP Primary Care Unavailable PHILOMENA ROSENBERG CNP Attending Unavailable PROVIDER, UNKNOWN Consulting Unavailable CHANTEL PALACIO Attending Unavailable FANNY SPRINGER EDUCATIONAL COORDINATOR Consulting Unavailable WIETECHANTEL FRANK G Admitting Unavailable WIETECHA CHANTEL G Primary Care Unavailable PROVIDER, UNKNOWN Consulting Unavailable WIMAXCHA CHANTEL G Attending Unavailable FANNY SPRINGER EDUCATIONAL COORDINATOR Consulting Unavailable WIETECHA CHANTEL G Admitting Unavailable WIETECHA, CHANTEL G Primary Care Unavailable PROVIDER, UNKNOWN Consulting Unavailable CURT PALMER Attending Lexx CAPELLAN, PHILOMENA Peoples Primary Care Unava ilable SHAKIRA CAPELLAN, PHILOMENA Peoples Primary Care Unava ilable CURT PALMER Attending Lexx Rosenberg NP-C, Philomena Primary Care Provider Shakira LAROSE-CPhilomena Attending Provider [phone] Shakira LAROSE-C, Philomena Referring Provider Dr. Fredy Zhao MD Other Provider Dr. Fredy Zhao MD Attending Provider Dr. Fredy Zhao MD Referring Provider Dr. Rubi Cantu MD Attending Provider Shakira LAROSE, Philomena Primary Care Unavailable Judy Tapia Attending Unavailable Shakira LAROSE, Philomena Primary Care Unavailable Rubi Cantu Attending Unavailable Shakira EDUCATIONAL COORDINATOR, Philomena Referring Unavailable Ungerer, Fanny Primary Care Unavailable Ungerer, Fanny Referring Unavailable Carla Callejas Attending Unavailable Ungerer, Fanny Primary Care Unavailable Robotham, Diana Attending Unavailable Robotham, Diana Referring Unavailable Shakira EDUCATIONAL COORDINATOR, Philomena Primary Care Unavailable Pavel, Fredy Attending Unavailable Pavel, Fredy Referring Unavailable Rubi Cantu Attending Unavailable Shakira EDUCATIONAL COORDINATOR, [place]omena Primary Care Unavailable Shakira EDUCATIONAL COORDINATOR, [place]omena Attending Unavailable Shakira EDUCATIONAL COORDINATOR, [place]omena Referring Unavailable Shakira EDUCATIONAL COORDINATOR, [place]omena Primary Care Unavailable Shakira EDUCATIONAL COORDINATOR, Philomena Primary Care Unavailable Pavel, Fredy Consulting Unavailable Shakira EDUCATIONAL COORDINATOR, [place]omena Attending Unavailable Shakira EDUCATIONAL COORDINATOR, Philomena Referring Unavailable , Fredy Attending Unavailable Shakira EDUCATIONAL COORDINATOR, [place]a Referring Unavailable Shakira EDUCATIONAL COORDINATOR, Philomena Primary Care Unavailable Jd Cedeño Attending Unavailable Ungerer, Fanny Primary Care Unavailable Robotham, Diana Referring Unavailable Ungerer, Fanny Primary Care Unavailable Robotham, Diana Consulting Unavailable Robotham, Diana Attending Unavailable Robotham, Diana Referring Unavailable Shakira EDUCATIONAL COORDINATOR, [place]omena Primary Care Unavailable Rubi Cantu Attending Unavailable Shakira LAROSE, Philomena Referring Unavailable Regina BAEZ, Dr. Kim Attending Provider Medications Current Medications Medication Drug Class(es) Dates Sig (Normalized) Sig (Original) 0.5 ML tirzepatide 15 MG/ML Auto-Injector [Mounjaro] (2 sources) Start: 01-16-2025 Mounjaro 7.5 mg/0.5 mL subcutaneous solution INJECT 7.5MGS SUBCUTANEOUS ONCE A WEEK Start Date: 01/16/25 Status: Ordered Repeat number: 1 12 hr buPROPion hydrochloride 90 mg / naltrexone hydrochloride 8 mg extended release oral tablet (4 sources) Opioid Antagonist, Aminoketone Start: 07-04-2025 Naltrexone-Bupropi on (Contrave) 8-90 mg tablet extended release Active 2 {tbl} PO TWICE A DAY 120 30 2 July 04, 2025 1:25pm Start: 07-04-2025 End: 07-04-2025 Naltrexone-Bupropion (Contra ve) 8-90 mg tablet extended release Discontinued 1 {tbl} PO EVERY MORNING July 04, 2025 12:00am July 04, 2025 1:29pm cholecalciferol 1.25 mg oral capsule (4 sources) Vitamin D Start: 01-27-2025 take 1 capsule by mouth every other week Cholecalciferol (Vitamin D3) 1,250 mcg (50,000 unit) capsule Active 1250 ug PO every 2 weeks January 27, 2025 12:00am docusate sodium 100 mg oral capsule (2 sources) Start: 11-26-2018 Colace 100 mg oral capsule Dose : 100 mg = 1 cap(s), Oral, BID, PRN as needed for constipation, # 20 cap(s), 0 Refill(s) Start Date: 11/26/18 Status: Ordered Quantity: 20.0 Unit: cap(s) Repeat number: 1 greens supplement (4 sources) Start: 05-30-2025 greens supplement Active PO May 30, 2025 12:00am hydrOXYzine hydrochloride 10 mg oral tablet (2 sources) Antihistamine Start: 11-19-2018 hydrOXYzine hydrochloride 10 mg oral tablet Dose : 10 mg = 1 tab(s), Oral, qHS, 0 Refill(s) Start Date: 11/19/18 Status: Ordered Repeat number: 1 levothyroxine sodium 0.112 mg oral tablet (10 sources) l-Thyroxine Start: 07-09-2024 End: 05-01-2025 take 1 tablet by mouth once daily Levothyroxine 112 mcg tablet Active 112 ug PO daily 90 3 May 01, 2025 7:29am Start: 11-19-2018 levothyroxine 112 mcg (0.112 mg) oral tablet Dose : 112 mcg = 1 tab(s), Oral, qAM, # 30 tab(s), 0 Refill(s) Start Date: 11/19/18 Status: Ordered Quantity: 30.0 Unit: tab(s) Repeat number: 1 Magnesium Carb,Citrate,Oxide (Magnesium Complex) 300 mg magnesium tablet (4 sources) Start: 01-27-2025 Magnesium Carb,Citrate,Oxide (Magnesium Complex) 300 mg magnesium tablet Active mg PO January 27, 2025 12:00am nystatin 100 unt/mg topical powder (4 sources) Polyene Antifungal Start: 05-30-2025 Nystatin 100,000 unit/gram powder Active 1 NMA TOPICAL daily as needed May 30, 2025 12:00am topiramate 50 mg oral tablet (2 sources) Start: 02-13-2018 topiramate 50 mg oral tablet Dose : 50 mg = 1 tab(s), Oral, qHS, 0 Refill(s) Start Date: 02/13/18 Status: Ordered Repeat number: 1 Vitamin D2 50,000 intl units capsule (2 sources) Start: 02-13-2018 Vitamin D2 50, 000 intl units capsule Dose : 50,000 unit(s) = 1 cap(s), Oral, Monday & Monday, 0 Refill(s) Start Date: 02/13/18 Status: Ordered Repeat number: 1 Completed/Discontinued Medications Medication Drug Class(es) Dates Sig (Normalized) Sig (Original) acetaminophen 325 mg / HYDROcodone bitartrate 5 mg oral tablet (4 sources) Opioid Agonist Start: 06-30-2024 End: 07-09-2024 Hydrocodone-Acetamin ophen 5-325 mg tablet Discontinued 1 {tbl} PO EVERY 6 HOURS NEEDED as needed for Pain 10 3 0 June 30, 2024 July 09, 2024 9:30am Biliary colic Calculus of bile duct without cholangitis or cholecystitis without obstruction ergocalciferol 1.25 mg oral capsule (4 sources) Provitamin D2 Compound Start: 07-09-2024 End: 01-27-2025 Ergocalciferol (Vitamin D2) 1,250 mcg (50,000 unit) capsule Discontinued 1250 ug PO .EVERY OTHER WEEK July 09, 2024 12:00am January 27, 2025 10:16am mecobalamin (4 sources) Start: 07-09-2024 End: 01-27-2025 take 1 tablet by mouth once daily Mecobalamin (Vitamin B12) 500 mcg tablet,chewable Discontinued 500 ug PO DAILY July 09, 2024 12:00am January 27, 2025 10:25am 24 hr metFORMIN hydrochloride 750 mg extended release oral tablet (10 sources) Biguanide Start: 01-27-2025 End: 05-30-2025 take 1 tablet by mouth twice daily Metformin 750 mg tablet extended release 24 hr Discontinued 750 mg PO TWICE A DAY January 27, 2025 10:15am May 30, 2025 3:06pm Start: 07-09-2024 End: 01-27-2025 Metformin 750 mg tablet exte nded release 24 hr Discontinued 1500 mg PO DAILY July 09, 2024 12:00am January 27, 2025 10:18am Start: 02-13-2018 metFORMIN 500 mg oral tablet, extended release Dose : 1,500 mg = 3 tab(s), Oral, qHS, # 30 tab(s), 0 Refill(s) Start Date: 02/13/18 Status: Ordered Quantity: 30.0 Unit: tab(s) Repeat number: 1 naproxen 500 mg oral tablet (4 sources) Nonsteroidal Anti-inflammatory Drug Start: 06-30-2024 End: 07-09-2024 take 1 tablet by mouth twice daily Naproxen 500 mg tablet Discontinued 500 mg PO TWICE A DAY 14 June 30, 2024 12:00am July 09, 2024 9:30am NIFEdipine 60 mg osmotic 24 hr extended release oral tablet (6 sources) Dihydropyridine Calcium Channel Agatha Start: 07-09-2024 End: 05-30-2025 take 1 tablet by mouth once daily in the evening Nifedipine 60 mg tablet extended release 24hr Discontinued 60 mg PO EVERY EVENING July 09, 2024 12:00am May 30, 2025 3:06pm Start: 09-07-2023 take 1 tablet by beena th once daily in the evening NIFEdipine (Eqv-Adalat CC) 30 mg oral tablet, extended release TAKE 1 TABLET BY MOUTH EVERY EVENING Start Date: 09/07/23 Status: Ordered Repeat number: 1 omeprazole 40 mg delayed release oral capsule (4 sources) Proton Pump Inhibitor Start: 07-09-2024 End: 01-27-2025 take 1 capsule by mouth once daily in the evening Omeprazole 40 mg capsule,delayed release(DR/EC) Discontinued 40 mg PO daily 30 0 July 09, 2024 12:00am January 27, 2025 10:25am swallow whole; do not crush, chew, dissolve, cut, break--take in PM due to levothyroxine oxyCODONE hydrochloride 5 mg oral capsule (4 sources) Opioid Agonist Start: 07-18-2024 End: 08-01-2024 take 1 capsule by mouth every six hours as needed for pain Oxycodone 5 mg capsule Discontinued 5 mg PO EVERY 6 HOURS as needed for pain 7 3 0 July 18, 2024 August 01, 2024 9:16am Postoperative pain Other acute postprocedural pain Tirzepatide - Levocarnitine (4 sources) Start: 01-27-2025 End: 05-30-2025 Tirzepatide - Levocarnitine Discontinued SC January 27, 2025 12:00am May 30, 2025 3:06pm 17 mg - 100 mg Problems Problem Classification Problem Date Documented Date Episodic/Chronic Abdominal pain (8 sources) Right upper quadrant pain; Translations: [Right upper quadrant pain] 07-08-2024 Episodic Anxiety disorders (2 sources) Claustrophobia 02-13-2018 Chronic Biliary tract disease (13 sources) Gallbladder pain; Translations: [Disease of gallbladder, unspecified] Onset: 08-14-2024 05-30-2025 Episodic Cardiac dysrhythmias (4 sources) Sinus tachycardia; Translations: [Tachycardia, unspecified] 07-08-2024 Episodic Diabetes mellitus without complication (3 sources) Hyperglycemia; Translations: [Prediabetes] Onset: 02-18-2025 02-13-2018 Episodic Headache; including migraine (2 sources) Migraine 02-13-2018 Chronic Menstrual disorders (4 sources) Dysmenorrhea; Translations: [Polymenorrhea] 02-13-2018 Chronic Nausea and vomiting (4 sources) Nausea; Translations: [Nausea] 07-09-2024 Episodic Nonmalignant breast conditions (4 sources) Breast lump 09-06-2023 Episodic Nutritional deficiencies (6 sources) Vitamin D deficiency; Translations: [Vitamin D deficiency, unspecified] Onset: 01-27-2025 02-25-2025 Chronic Other circulatory disease (2 sources) Raynaud's phenomenon 09-06-2023 Chronic Other circulatory disease (2 sources) Raynaud's syndrome without gangrene; Translations: [Raynaud's syndrome without gangrene] Onset: 02-18-2025 Chronic Other circulatory disease (4 sources) Elevated blood-pressure reading without diagnosis of hypertension; Translations: [Elevated blood-pressure reading, without diagnosis of hypertension] 07-08-2024 Episodic Other nutritional; endocrine; and metabolic disorders (2 sources) Body mass index 30+ - obesity 02-13-2018 Chronic Other nutritional; endocrine; and metabolic disorders (10 sources) Obesity; Translations: [Other obesity] 05-30-2025 Chronic Comment on above: lost 120 lbs on tirz epatide, switch to contrave lost 120 lbs on comp ounded tirzepatide, now on contrave for maintenance. tracking food now with kennedy, in weight loss maintenance mode with balanced EDUCATIONAL COORDINATOR calorie controlled, handout given with goals. exercise 4-5 days a week at . plan to continue contrave for maintenance but need to follow bps to ensure normal, and at 3 months at full dose, confirm weight maintenance. Other nutritional; endocrine; and metabolic disorders (5 sources) Metabolic syndrome X; Translations: [Metabolic syndrome] 02-25-2025 Chronic Comment on above: ON METFORMIN FOR THI S metformin in the pas t. Other nutritional; endocrine; and metabolic disorders (2 sources) H/O: hypothyroidism 02-13-2018 Episodic Other screening for suspected conditions (not mental disorders or infectious disease) (5 sources) Encounter for screening for cardiovascular disorders; Translations: [Encounter for screening mammogram for malignant neoplasm of breast] Onset: 09-30-2024 Episodic Residual codes; unclassified (2 sources) At high risk for breast cancer 09-06-2023 Episodic Residual codes; unclassified (2 sources) Family history of breast cancer 09-06-2023 Episodic Residual codes; unclassified (1 source) Family history of malignant neoplasm of breast; Translations: [Family history of malignant neoplasm of breast] Onset: 03-12-2025 Episodic Thyroid disorders (8 sources) Se thyroiditis; Translations: [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] Onset: 06-15-2025 09-06-2023 Chronic Thyroid disorders (4 sources) Disorder of thyroid gland; Translations: [Disorder of thyroid, unspecified] 07-09-2024 Episodic Unclassified (2 sources) Breast finding 09-06-2023 Unclassified (2 sources) Eye glasses, device (physical object) 02-13-2018 Unclassified (1 source) Dense breasts, unspecified; Translations: [Dense breasts, unspecified] Onset: 03-12-2025 Urinary tract infections (2 sources) Chronic interstitial cystitis 02-13-2018 Chronic Results Test Name Value Interpretation Reference Range Facility Lipoprotein Aon 07-07-2025 Lipoprotein a [Moles/Vol] 111.9 nmol/L Abnormal <75.0 [facility] Comment on above: Order Comment: Test( s) [id number] (a) was developed and its performance characteristics determined by [employer]. It has not been cleared or approved by the Food and Drug Administration. Result Comment: Note : Values greater than or equal to 75.0 nmol/L may indicate an independent risk factor for CHD, but must be evaluated with caution when applied to non- populations due to the influence of genetic factors on Lp(a) across ethnicities. Performed at: [facility] [employer] [id number] Dirt Bike Mechanic: Jaime Limon PhD, Phone: [phone] Performed By: #### [id number] #### [facility] [address] [place], [place], [id number] Lipoprotein a [Mass/Vol]Orde red By: Rubi Cantu on 07-04-2025 Lipoprotein a [Moles/Vol] 111.9 nmol/L High <75.0 [facility] Comment on above: Note: Values greater than or equal to 75.0 nmol/L may indicate an independent risk factor for CHD, but must be evaluated with caution when applied to non- populations due to the influence of genetic factors on Lp(a) across ethnicities.Performed at: [facility] [employer] [id number] Director: Jaime Limon PhD, Phone: [phone] [employer] Office Visit Reporton 07-04-2025 [employer] Dean Office Visit Report [facility] [address], [address] [place] [address] OFFICE VISIT Date of Service: 07/04/25 MR#: [id number] Acct: [id number] Name: DESMOND MCDONOUGH Rep #: [id number] : 1985 Provider: Dr. Rubi fitzpatrick MD Age/Sex: 40/F [place] [facility] [place]: Signed Intake Vital Signs 05/30/25 15:04 07/04/25 12:59 07/04/25 13:00 Height 5 ft 3 in 5 ft 3 in 5 ft 3 in Weight: 133 lb 138 lb 2 oz BMI 23.6 24.5 BP 124/84 H 134/81 H Pulse 91 Intake Visit Reasons: 1 M F/U *COPAY $20 Drip Pumper Required: No Is patient in pain?: No Allergies No Known Allergies Allergy (Verified 05/30/25 15:06) Medications ???Medication ???Instructions ???Recorded ???Confirmed ???Type cholecalciferol (vitamin D3) 1,250 1,250 mcg PO Q2W 01/27/25 History mcg (50,000 unit) capsule magnesium carb,citrate,oxide mg PO 01/27/25 07/04/25 History (Magnesium Complex) levothyroxine 112 mcg tablet 112 mcg PO QDAY #90 tabs 05/01/25 07/04/25 Rx greens supplement PO 05/30/25 07/04/25 History nystatin 100,000 unit/gram topical 1 applic topical QDAY PRN 07/04/25 History powder naltrexone 8 mg-bupropion 90 mg 2 tab PO BID 30 days #120 tabs 03/2307/04/25 Rx tablet,extended release (Contrave) Last Menstrual Period: 10/30/20 Zika: Zika virus screening: Negative : No PFSH PFSH Medical History Gallstones Breast lump Vitamin D deficiency 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 Wears glasses Post-menopausal Alcohol use Se's disease Migraine headache Former smoker History of echocardiogram Metabolic syndrome Gallbladder attack Thyroid disease Abdominal pain Nausea Interstitial cystitis Raynaud disease Hypothyroid Surgical History H/O laparoscopy S/P laparoscopic cholecystectomy History of endometrial ablation H/O: hysterectomy H/O ovarian cystectomy Family History Grandmother Hypertension Uterine cancer Thyroid disorder Father Hypertension High cholesterol Thyroid disorder Grandfather Colon cancer Aunt Breast cancer Skin cancer Social History number of children: 4 current occupation: [employer] Smoking Status: Former smoker alcohol intake: current alcohol intake frequency: holidays/special occasions only substance use type: does not use what type of physical activity do you participate in: other details: strength and cardio frequency: other details: 4-5 days per week do you feel safe at home: Yes additional social history: - Santy History 4 Elective abortions Hx Para 4 Spontaneous abortions Hx # Term Pregnancies 4 Ectopic pregnancies Hx # Pregnancies Multiple births # of living children 4 Past Pregnancies Del. Date Name GA/Weeks Outcome Route Bth Weight Infant Gen Labor Lgth Anesthesia Del Locatn Provider FOB Unknown Elissa 2005 live - full term Unknown Magaly 2011 live - full term Unknown Carmen 2013 live - full term Unknown Sindy 2015 live - full term HPI 1 M F/U *COPAY $20 Details: DESMOND MCDONOUGH is a 40 year old Female presenting for a weight management follow up. she has noticed a significant change on the mediciation although she has bene out of it for two weeks. while she was on it she felt like she did on the tirzepatide. she didn't have food noise, she had appetite control, craving control, and good motivation. weight is up a few pounds but we discussed why that might be. she is very interested in continuing medication. Female Reproductive History Last Menstrual Period: 10/30/20 ROS Const Reports as per HPI, Denies difficulty sleeping, Denies excessive sweating, Denies fatigue (new onset severe) and Denies fever(s) Eyes Denies change in vision and Denies diplopia ENT Denies dizziness Card Denies chest pain, Denies dyspnea, Denies dyspnea on exertion, Denies palpitations and Denies rapid heart rate Resp Denies dyspnea and Denies dyspnea on exertion GI Reports as per HPI, Denies abdominal pain and Denies constipation Musc Denies numbness Neuro No confusion, No dizziness, No memory loss and No numbness Psych Denies confusion, Denies depression, Denies memory loss, Denies mood swings and Denies suicidal ideation Endo Denies excessive sweating, Denies fatigue (new onset severe), Denies palpitations and Reports other (denies symptoms of hypoglycemia) Exam Const General: cooperative, healthy appearing, comfortable and no acute distress Orientation: alert (more content not included)... Normal [facility] [employer] Office Visit Reporton 05-30-2025 Business [employer] Dean Office Visit Report [facility]'s [address], [address] [place] [address] OFFICE VISIT Date of Service: 05/30/25 MR#: [id number] Acct: [id number] Name: DESMOND MCDONOUGH Rep #: [id number] : 1985 Provider: Dr. Rubi fitzpatrick MD Age/Sex: 40/F [place] [facility] [place]: Signed Intake Vital Signs 07/18/24 08:57 01/27/25 10:21 05/30/25 15:04 Height 5 ft 3 in 5 ft 3 in 5 ft 3 in Weight: 145 lb 4 oz 133 lb BMI 25.7 23.6 BP 110/77 124/84 H Blood Pressure Location Lt brachial Position Sitting Pulse 115 H Pulse Source Monitor Pulse Oximetry (%) 98 Oxygen Delivery Method room air Intake Visit Reasons: Annual (ARCHITECT INTERN) Drip Pumper Required: No Is patient in pain?: No Allergies No Known Allergies Allergy (Verified 05/30/25 15:06) Medications ???Medication ???Instructions ???Recorded ???Confirmed ???Type cholecalciferol (vitamin D3) 1,250 1,250 mcg PO Q2W 01/27/25 History mcg (50,000 unit) capsule magnesium carb,citrate,oxide mg PO 01/27/25 05/30/25 History (Magnesium Complex) levothyroxine 112 mcg tablet 112 mcg PO QDAY #90 tabs 05/01/25 05/30/25 Rx greens supplement PO 05/30/25 05/30/25 History nystatin 100,000 unit/gram topical 1 applic topical QDAY PRN 05/30/25 History powder Is last menstrual period known: No Post menopausal: No Patient : No : No PFSH Medical History (Updated 05/30/25 @ 16:[address] 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 Wears glasses Post-menopausal Alcohol use Se's disease Migraine headache Former smoker History of echocardiogram Metabolic syndrome Gallbladder attack Thyroid disease Abdominal pain Nausea Interstitial cystitis Raynaud disease Hypothyroid Surgical History (Updated 05/30/25 @ 15:16 by Ashanti Maddox) H/O laparoscopy S/P laparoscopic cholecystectomy History of endometrial ablation H/O: hysterectomy H/O ovarian cystectomy Family History Grandmother Hypertension Uterine cancer Thyroid disorder Father Hypertension High cholesterol Thyroid disorder Grandfather Colon cancer Aunt Breast cancer Skin cancer Social History (Updated 05/30/25 @ 15:07 by Ashanti Maddox) number of children: 4 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 Date Name GA/Weeks Outcome Route Bth Weight Infant Gen Labor Lgth Anesthesia Del Locatn Provider FOB Unknown Elissa 2005 live - full term Unknown Magaly 2011 live - full term Unknown Carmen 2013 live - full term Unknown Sindy 2016 live - full term HPI Encounter for routine gynecological examination Details: DESMOND MCDONOUGH is a 40 year old who presents for annual exam. lost 120lbs on compounded tirzepatide. has stopped it now and is concerned for regain. 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 Last PAP: hyst. Last PAP in 2021. History of abnormal PAP: Last mammogram: 09/19/2024. MRI done in February 2025. History of abnormal mammogram: Colon cancer screening: not due Other preventative health care screenings: PCP Shakira Amaro Constitutional: Reports as per HPI and weight loss; Denies fatigue, increased appetite, poor appetite or weight gain Cardio Card: Denies chest pain Resp Resp: Denies cough or dyspnea GI GI: Reports as per HPI; Denies abdominal pain, bloating, constipation, nausea or vomiting : Reports as per HPI, urinary frequency, urinary incontinence and other; Denies difficulty voiding, dysuria, hematuria, nipple discharge, pelvic pain, prolapse symptoms, urinary urgency, vaginal discharge, vaginal dryness, vaginal odor or vaginal pruritus Skin Skin/Breast: Denies changing lesions, breast mass, breast pain, breast skin changes or nipple discharge Psych Psych: Denies anxiety or depression Exam Const General: cooperative, healthy appearing, comfortable, no acute distress, well developed and well groomed [facility] Head: normal to inspection and normocephalic Ears: hearing grossly normal bila (more content not included)... Normal [facility] T4 Free Directon 05-30-2025 T4 FREE DIRECT 1.50 ng/dL High 0.76-1.46 [facility] Comment on above: Performed By: #### L [id number], [id number] #### [facility] [address] [place], [place], [id number] T4 freeOrdered By: Fredy Zhao on 05-30-2025 Free T4 [Mass/Vol] 1.50 ng/dL High 0.76-1.46 [facility] TSH DL <= 0.005 mIU/L QnOrde red By: Fredy Zhao on 05-30-2025 TSH Qn 2.630 uIU/mL 0.300-4.200 [facility] Thyroid Stim Hormone (TSH)on 05-30-2025 TSH 2.630 uIU/mL Normal 0.300-4.200 [facility] Comment on above: Performed By: #### L 501.9520, L506.0400 #### [facility] [address] [facility] [place], [place], [id number] MRI BREAST BILATERAL FAST SC [facility] 03-28-2025 MRI BREAST BILATERAL FAST SCREENING ORIGINAL FROM: [address] [address] PROCEDURE FOR: DESMOND MCDONOUGH [address] [place] [address] Home: PID#: [id number] Exam#: [id number] : 1985 Age: 40 TO: CURT MARIEE APRN [address] [address] Fax: NO FAX EXAMINATION: MRI OF THE BILATERAL BREASTS WITHOUT CONTRAST 03/12/2025 7:47 am TECHNIQUE: Multiplanar multisequence MRI of the bilateral breasts were performed without and with the administration of intravenous contrast. Data analysis was performed with color parametric mapping, image subtraction, and 3D reconstructions. COMPARISON: 09/19/2024, 06/21/2023 and 09/17/2021 mammograms, 07/07/2023 bilateral breast ultrasound. HISTORY: ORDERING SYSTEM PROVIDED HISTORY: Reason for Exam: screening, extremely dense breast tissue FINDINGS: Bilateral background parenchymal enhancement is mild to moderate and is symmetric. There are multiple bilateral simple appearing cysts. No significant enhancing masses seen in either breast. There are no enlarged axillary or internal mammary lymph nodes. IMPRESSION: No evidence of malignancy. No evidence of a breast carcinoma measuring 3 mm in size or greater. Return to annual mammographic screening. Fibrocystic change. BIRADS: BI-RADS: 2: Benign RECALL: return to screening RECALL TYPE: mammo LETTER SENT: Probably Benign BI-RADS 3 Interpreted by: Jd Cr MD Preliminary Report By: Jd Cr MD Electronically signed By Jd Cr MD Dictated Date: 03/28/2025 8:04:01 AM Prelim Date: 03/28/2025 3:03:39 PM Sign Date: 03/28/2025 3:03:39 PM Ordering Provider: CURT MARIEE Antique Finisher: AURA TREVINO RT(R)(MR) letter sent: Probably Benign BI-RADS 3 MRI BI-RADS: 2 Benign Normal [facility] Anion gap in Serum or Plasma Ordered By: Philomena Rosenberg on 03-18-2025 Anion gap [Moles/Vol] 10 mmol/L 03-13 [facility] BUN/creatinine ratioOrdered By: Philomena Rosenberg on 03-18-2025 Urea nitrogen/Creatinine [Mass ratio] 13.1 mg/mg 08-18 [facility] Bilirubin, totalOrdered By: Philomena Rosenberg on 03-18-2025 Bilirubin [Mass/Vol] 0.47 mg/dL 0.00-1.30 [facility] CBC-Complete Blood Cnt No Di ffon 03-18-2025 Erythrocyte distribution width (RBC) [Ratio] 12.1 % Normal 11.6-14.6 [facility] Comment on above: Performed By: #### L 501.9520, L503.0106, L506.1001, L506.0400 #### [facility] [address] [place], [address] Hematocrit (Bld) [Volume fraction] 36.0 % Low 37-47 [facility] Comment on above: Performed By: #### L 501.9520, L503.0106, L506.1001, L506.0400 #### [facility] [address] [place], [address] Hemoglobin (Bld) [Mass/Vol] 12.6 g/dL Normal 12.0-15.0 [facility] Comment on above: Performed By: #### L 501.9520, L503.0106, L506.1001, L506.0400 #### [facility] [address] [place], [address] MCH (RBC) [Entitic mass] 32.4 pg High 27.0-32.0 [facility] Comment on above: Performed By: #### L 501.9520, L503.0106, L506.1001, L506.0400 #### [facility] [address] [place], [address] MCHC (RBC) [Mass/Vol] 35.0 g/dL Normal 32-36 [facility] Comment on above: Performed By: #### L 501.9520, L503.0106, L506.1001, L506.0400 #### [facility] [address] [place], [address] MCV (RBC) [Entitic vol] 92.5 fL Normal 81-99 [facility] Comment on above: Performed By: #### L 501.9520, L503.0106, L506.1001, L506.0400 #### [facility] [address] [place], [address] Platelet mean volume (Bld) [Entitic vol] 9.9 fL Normal 6.2-12.0 [facility] Comment on above: Performed By: #### L 501.9520, L503.0106, L506.1001, L506.0400 #### [facility] [address] [place], [address] Platelets (Bld) [#/Vol] 239 10*3/uL Normal 150-450 [facility] Comment on above: Performed By: #### L 501.9520, L503.0106, L506.1001, L506.0400 #### [facility] [address] [place], [address] RBC (Bld) [#/Vol] 3.89 10*6/uL Low 4.2-5.4 [facility] Comment on above: Performed By: #### L 501.9520, L503.0106, L506.1001, L506.0400 #### [facility] [address] [place], [address] RDW SD 40.8 fl Normal 35.1-43.9 [facility] Comment on above: Performed By: #### L 501.9520, L503.0106, L506.1001, L506.0400 #### [facility] [address] [place], [address] WBC (Bld) [#/Vol] 5.2 10*3/uL Normal 4.4-11.0 [facility] Comment on above: Performed By: #### L 501.9520, L503.0106, L506.1001, L506.0400 #### [facility] [address] [place], [address] Calculated very low density lipoprotein (VLDL) cholesterol measurementOrdered By: Philomena Rosenberg on 03-18-2025 Calculated very low density lipoprotein (VLDL) cholesterol measurement 15 mg/dL 5-40 [facility] Carbon dioxide, total [Moles /volume] in Central venous bloodOrdered By: Philomena Rosenberg on 03-18-2025 CO2 [Moles/Vol] 24.2 mmol/L 21.0-32.0 [facility] Chloride assayOrdered By: Aleks Rosenberg on 03-18-2025 Chloride [Moles/Vol] 104 mmol/L 98-108 [facility] Comprehensive Metabolic Prof ilon 03-18-2025 Albumin [Mass/Vol] 4.2 g/dL Normal 3.5-5.0 [facility] Comment on above: Performed By: #### L 501.9520, L503.0106, L506.1001, L506.0400 #### [facility] [address] [place], [address] Albumin/Globulin [Mass ratio] 1.5 {ratio} Normal 0.9-2.4 [facility] Comment on above: Performed By: #### L 501.9520, L503.0106, L506.1001, L506.0400 #### [facility] [address] [place], [address] ALK PHOS 37 U/L Normal 35-104 [facility] Comment on above: Performed By: #### L 501.9520, L503.0106, L506.1001, L506.0400 #### [facility] [address] [place], [address] ALT [Catalytic activity/Vol] 11 U/L Normal <=34 [facility] Comment on above: Performed By: #### L 501.9520, L503.0106, L506.1001, L506.0400 #### [facility] [address] [place], [address] AST [Catalytic activity/Vol] 15 U/L Normal <=31 [facility] Comment on above: Performed By: #### L 501.9520, L503.0106, L506.1001, L506.0400 #### [facility] [address] [place], [address] Bilirubin [Mass/Vol] 0.47 mg/dL Normal 0.00-1.30 [facility] Comment on above: Performed By: #### L 501.9520, L503.0106, L506.1001, L506.0400 #### [facility] [address] [place], [address] BUN/CRE 13.1 RATIO Normal 10-20 [facility] Comment on above: Performed By: #### L 501.9520, L503.0106, L506.1001, L506.0400 #### [facility] [address] [place], [address] Calcium [Mass/Vol] 9.5 mg/dL Normal 7.6-11.0 [facility] Comment on above: Performed By: #### L 501.9520, L503.0106, L506.1001, L506.0400 #### [facility] [address] [place], [address] Chloride [Moles/Vol] 104 mmol/L Normal 98-108 [facility] Comment on above: Performed By: #### L 501.9520, L503.0106, L506.1001, L506.0400 #### [facility] [address] [place], [address] CO2 [Moles/Vol] 24.2 mmol/L Normal 21.0-32.0 [facility] Comment on above: Performed By: #### L 501.9520, L503.0106, L506.1001, L506.0400 #### [facility] [address] [place], [address] Creatinine [Mass/Vol] 0.85 mg/dL Normal 0.70-1.20 [facility] Comment on above: Performed By: #### L 501.9520, L503.0106, L506.1001, L506.0400 #### [facility] [address] [place], [address] GAP 10 Normal 5-15 [facility] Comment on above: Performed By: #### L 501.9520, L503.0106, L506.1001, L506.0400 #### [facility] [address] [place], [address] GFR/1.73 sq M.predicted among non-blacks MDRD (S/P/Bld) [Vol rate/Area] 88 mL/min/{1.73_m2} Normal >60 [facility] Comment on above: Result Comment: mL/m in/1.73m2 CKD-EPI Creatinine Equation (2020) Performed By: #### L 501.9520, L503.0106, L506.1001, L506.0400 #### [facility] [address] [place], [address] Globulin (S) [Mass/Vol] 2.7 g/dL Normal 2.2-4.2 [facility] Comment on above: Performed By: #### L 501.9520, L503.0106, L506.1001, L506.0400 #### [facility] [address] [place], [address] Glucose [Mass/Vol] 82 mg/dL Normal 70-99 [facility] Comment on above: Performed By: #### L 501.9520, L503.0106, L506.1001, L506.0400 #### [facility] [address] [place], [address] Potassium [Moles/Vol] 4.0 mmol/L Normal 3.3-5.1 [facility] Comment on above: Performed By: #### L 501.9520, L503.0106, L506.1001, L506.0400 #### [facility] [address] [place], [address] Sodium [Moles/Vol] 138 mmol/L Normal 133-145 [facility] Comment on above: Performed By: #### L 501.9520, L503.0106, L506.1001, L506.0400 #### [facility] [address] [place], [address] T PROT 6.9 g/dL Normal 5.9-8.4 [facility] Comment on above: Performed By: #### L 501.9520, L503.0106, L506.1001, L506.0400 #### [facility] [address] [place], [address] Urea nitrogen [Mass/Vol] 11 mg/dL Normal 4-19 [facility] Comment on above: Performed By: #### L 501.9520, L503.0106, L506.1001, L506.0400 #### [facility] [address] [place], [address] Erythrocyte distribution wid th ratioOrdered By: Philomena Rosenberg on 03-18-2025 Erythrocyte distribution width (RBC) [Ratio] 12.1 % 11.6-14.6 [facility] Erythrocyte distribution wid th standard deviationOrdered By: Philomena Rosenberg on 03-18-2025 Erythrocyte distribution width (RBC) [Ratio] 40.8 fl 35.1-43.9 [facility] Glomerular filtration rate ( GFR) estimation/1.73 sq m using serum, plasma, or whole bOrdered By: Philomena Rosenberg on 03-18-2025 GFR/1.73 sq M.predicted among non-blacks MDRD (S/P/Bld) [Vol rate/Area] 88 mL/min/{1.73_m2} >60 [facility] Comment on above: mL/min/1.73m2 CKD-EP I Creatinine Equation (2020) Hematocrit Auto (Bld) [Volum e fraction]Ordered By: Philomena Rosenberg on 03-18-2025 Hematocrit (Bld) [Volume fraction] 36.0 % Low 37-47 [facility] Hemoglobin A1con 03-18-2025 HbA1c (Bld) [Mass fraction] 4.7 % Normal <=5.6 [facility] Comment on above: Result Comment: Norm al < 5.7 % Prediabetic 5.7 - 6.4 % Diabetic >or= 6.5 % Please note range changes. Performed By: #### L 501.9520, L503.0106, L506.1001, L506.0400 #### [facility] [address] [place], [place], [address] Hemoglobin A1c percentageOrd ered By: Philomena Rosenberg on 03-18-2025 HbA1c (Bld) [Mass fraction] 4.7 % <5.7 [facility] Comment on above: Normal < 5.7 % Predi abetic 5.7 - 6.4 % Diabetic >or= 6.5 % Please note range changes. Hemoglobin measurementOrdere d By: Philomena Rosenberg on 03-18-2025 Hemoglobin (Bld) [Mass/Vol] 12.6 g/dL 12.0-15.0 [facility] LDL calc ser/plasOrdered By: Philomena Rosenberg on 03-18-2025 Cholesterol in LDL [Mass/Vol] 89 mg/dL [facility] Comment on above: Kniwnjqqkk=044-201 m g/dL & Higher Yakw=384 mg/dL or greater Laboratory - Chemistry and C hemistry - challengeOrdered By: Philomena Rosenberg on 03-18-2025 AST [Catalytic activity/Vol] 15 U/L <32 [facility] Lipid Profileon 03-18-2025 CHOL:HDL 3.19 Normal [facility] Comment on above: Performed By: #### L 501.9520, L503.0106, L506.1001, L506.0400 #### [facility] [address] [place], [place], [address] Cholesterol [Mass/Vol] 151 mg/dL Normal <=200 [facility] Comment on above: Result Comment: Chol esterol level, Desirable <200 mg/dL Borderline high cholesterol 200-239 mg/dL High cholesterol >=240 mg/dL Recommendations of the NCEP Adult Treatment Panel for the following risk-cutoff thresholds for the [place] population. Performed By: #### L 501.9520, L503.0106, L506.1001, L506.0400 #### [facility] [address] [place], [address] Cholesterol in HDL [Mass/Vol] 47 mg/dL Normal [facility] Comment on above: Result Comment: [place] on[place] Cholesterol Education Program (NCEP) guidelines: <40 mg/dL: Low HDL-cholesterol (major risk factor for CHD) >= 60 mg/dL: High HDL-cholesterol (negative risk factor for CHD) HDL-cholesterol is affected by a number of factors, e.g. smoking, exercise, hormones, sex and age. Performed By: #### L 501.9520, L503.0106, L506.1001, L506.0400 #### [facility] [address] [place], [address] Cholesterol in LDL [Mass/Vol] 89 mg/dL Normal [facility] Comment on above: Result Comment: Bord vonqlp=184-099 mg/dL Higher Glel=981 mg/dL or greater Performed By: #### L 501.9520, L503.0106, L506.1001, L506.0400 #### [facility] [address] [place], [address] Cholesterol in VLDL [Mass/Vol] 15 mg/dL Normal 5-40 [facility] Comment on above: Performed By: #### L 501.9520, L503.0106, L506.1001, L506.0400 #### [facility] [address] [place], [address] Triglyceride [Mass/Vol] 73 mg/dL Normal [facility] Comment on above: Result Comment: The drugs N-Acetylcysteine and Metamizole may falsely depress this assay. Normal range: <150 mg/dL Borderline High: 150-199 mg/dL High: 200-499 mg/dL Very High: >500 mg/dL Performed By: #### L 501.9520, L503.0106, L506.1001, L506.0400 #### [facility] [address] [place], [address] MCV (mean corpuscular volume ) determinationOrdered By: Philomena Rosenberg on 03-18-2025 MCV (RBC) [Entitic vol] 92.5 fL 81-99 [facility] Mean corpuscular hemoglobin (MCH) determinationOrdered By: Philomena Rosenberg on 03-18-2025 MCH (RBC) [Entitic mass] 32.4 pg High 27.0-32.0 [facility] Mean corpuscular hemoglobin concentration (MCHC) determinationOrdered By: Philomena Rosenberg on 03-18-2025 MCHC (RBC) [Mass/Vol] 35.0 g/dL 32-36 [facility] Mean platelet volume determi nationOrdered By: Philomena Rosenberg on 03-18-2025 Platelet mean volume (Bld) [Entitic vol] 9.9 fL 6.2-12.0 [facility] Platelet countOrdered By: Aleks Rosenberg on 03-18-2025 Platelets (Bld) [#/Vol] 239 10*3/uL 150-450 [facility] Potassium measurement (mass/ volume)Ordered By: Philomena Rosenberg on 03-18-2025 Potassium (Unsp spec) [Mass/Vol] 4.0 mmol/L 3.3-5.1 [facility] RBC Auto (Bld) [#/Vol]Ordere d By: Philomena Rosenberg on 03-18-2025 RBC (Bld) [#/Vol] 3.89 10*6/uL Low 4.2-5.4 [facility] Screening total cholesterol/ high density lipoprotein (HDL) cholesterol ratioOrdered By: Philomena Rosenberg on 03-18-2025 Cholesterol.total/Choles terol in HDL [Mass ratio] 3.19 {ratio} [facility] Serum creatinine measurement (mass/volume)Ordered By: Philomena Rosenberg on 03-18-2025 Creatinine [Mass/Vol] 0.85 mg/dL 0.70-1.20 [facility] Serum globulin measurementOr dered By: Philomena Rosenberg on 03-18-2025 Globulin (S) [Mass/Vol] 2.7 g/dL 2.2-4.2 [facility] Serum glucose measurement (m ass/volume)Ordered By: Philomena Rosenberg on 03-18-2025 Glucose [Mass/Vol] 82 mg/dL 70-99 [facility] Serum or plasma alanine sylvester otransferase (ALT) measurementOrdered By: Philomena Rosenberg on 03-18-2025 ALT [Catalytic activity/Vol] 11 U/L <35 [facility] Serum or plasma albumin keven urement (mass/volume)Ordered By: Philomena Rosenberg on 03-18-2025 Albumin [Mass/Vol] 4.2 g/dL 3.5-5.0 [facility] Serum or plasma albumin/glob ulin mass ratioOrdered By: Philomena Rosenberg on 03-18-2025 Albumin/Globulin [Mass ratio] 1.5 {ratio} 0.9-2.4 [facility] Serum or plasma alkaline rodolfo sphatase measurementOrdered By: Philomena Rosenberg on 03-18-2025 ALP [Catalytic activity/Vol] 37 U/L 35-104 [facility] Serum or plasma calcium keven urement (mass/volume)Ordered By: Philomena Rosenberg on 03-18-2025 Calcium [Mass/Vol] 9.5 mg/dL 7.6-11.0 [facility] Serum or plasma cholesterol in HDL measurement (mass/volume)Ordered By: Philomena Rosenberg on 03-18-2025 Cholesterol in HDL [Mass/Vol] 47 mg/dL >40 [facility] Comment on above: National Cholesterol Education Program (NCEP) guidelines:<40 mg/dL: Low HDL-cholesterol (major risk factor for CHD)>= 60 mg/dL: High HDL-cholesterol (negative risk factor for CHD)HDL-cholesterol is affected by a number of factors, e.g. smoking, exercise, hormones, sex and age. Serum or plasma cholesterol measurement (mass/volume)Ordered By: Philomena Rosenberg on 03-18-2025 Cholesterol [Mass/Vol] 151 mg/dL <201 [facility] Comment on above: Cholesterol level, D esirable <200 mg/dLBorderline high cholesterol 200-239 mg/dLHigh cholesterol >=240 mg/dLRecommendations of the NCEP Adult Treatment Panel for the following risk-cutoff thresholds for the [place] population. Serum or plasma urea nitroge n measurement (mass/volume)Ordered By: Philomena Rosenberg on 03-18-2025 Urea nitrogen [Mass/Vol] 11 mg/dL 4-19 [facility] Sodium levelOrdered By: Preston Rosenberg on 03-18-2025 Sodium [Moles/Vol] 138 mmol/L 133-145 [facility] T4 Free Directon 03-18-2025 T4 FREE DIRECT 1.70 ng/dL High 0.76-1.46 [facility] Comment on above: Performed By: #### L 501.9520, L503.0106, L506.1001, L506.0400 #### [facility] [address] [place], [address] T4 freeOrdered By: Fredy Zhao on 03-18-2025 Free T4 [Mass/Vol] 1.70 ng/dL High 0.76-1.46 [facility] TSH DL <= 0.005 mIU/L QnOrde red By: Fredy Zhao on 03-18-2025 TSH Qn 0.088 uIU/mL Low 0.300-4.200 [facility] Thyroid Stim Hormone (TSH)on 03-18-2025 TSH 0.088 uIU/mL Low 0.300-4.200 [facility] Comment on above: Performed By: #### L 501.9520, L503.0106, L506.1001, L506.0400 #### [facility] [address] [place], [address] Total proteinOrdered By: Roque Rosenberg on 03-18-2025 Protein [Mass/Vol] 6.9 g/dL 5.9-8.4 [facility] Triglycerides measurementOrd ered By: Philomena Rosenberg on 03-18-2025 Triglyceride [Mass/Vol] 73 mg/dL <199 [facility] Comment on above: The drugs N-Acetylcy steine and Metamizole may falsely depress this assay. Normal range: <150 mg/dLBorderline High: 150-199 mg/dLHigh: 200-499 mg/dLVery High: >500 mg/dL Vitamin B12on 03-18-2025 Cobalamin (Vitamin B12) [Mass/Vol] 557 pg/mL Normal 180-914 [facility] Comment on above: Performed By: #### L 501.9520, L503.0106, L506.1001, L506.0400 #### [facility] [address] [place], [place], [address] Vitamin B12 ser/plasOrdered By: Fredy Zhao on 03-18-2025 Cobalamin (Vitamin B12) [Mass/Vol] 557 pg/mL 180-914 [facility] Vitamin D,25 Hydroxyon 03-18 Vitamin D 25-OH 75.2 ng/mL Normal 30-100 [facility] Comment on above: Result Comment: Mine min D Status Deficiency: <20 ng/mL (50nmol/L) Insufficiency: 20-30 ng/mL (50-75 nmol/L) Sufficiency: 30-100 ng/mL (75-250 nmol/L) Toxicity: >100 ng/mL (>250 nmol/L) Performed By: #### L 501.9520, L503.0106, L506.1001, L506.0400 #### [facility] [address] [place], [place], [address] White blood cell (WBC) count Ordered By: Philomena Rosenberg on 03-18-2025 WBC (Bld) [#/Vol] 5.2 10*3/uL 4.4-11.0 [facility] Endocrinology Visit Reporton 01-27-2025 Endocrinology Visit Report [facility] [address] [place], [place] [address] OFFICE VISIT Date of Service: 01/27/25 MR#: [id number] Acct: [id number] Name: DESMOND MCDONOUGH Rep #: [id number] : 1985 Provider: Clari Joe Age/Sex: 40/F Location: [facility] Status: Signed Intake Vital Signs 07/18/24 08:57 01/27/25 10:21 Height 5 ft 3 in 5 ft 3 in Weight: 145 lb 4 oz BMI 25.7 BP 110/77 Blood Pressure Location Lt brachial Position Sitting Pulse 115 H Pulse Source Monitor Pulse Oximetry (%) 98 Oxygen Delivery Method room air Intake Visit Reasons: Thyroid Chief Complaint: Thyroid Is patient in pain?: No Allergies No Known Allergies Allergy (Verified 01/27/25 10:15) Medications ???Medication ???Instructions ???Recorded ???Confirmed ???Type levothyroxine 112 mcg tablet 112 mcg PO QDAY 07/09/24 01/27/25 History nifedipine 60 mg tablet,extended 60 mg PO QPM 07/09/24 01/27/25 His tory release 24 hr Tirzepatide - Levocarnitine subcut 01/27/25 01/27/25 History cholecalciferol (vitamin D3) 1,250 1,250 mcg PO Q2W 01/27/25 History mcg (50,000 unit) capsule magnesium carb,citrate,oxide mg PO 01/27/25 01/27/25 History (Magnesium Complex) metformin 750 mg tablet,extended 750 mg PO BID 01/27/25 01/27/25 Hi story release 24 hr PFSH Medical History (Updated 02/25/25 @ 08:[address] 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 Wears glasses Post-menopausal Alcohol use Se's disease Migraine headache Former smoker History of echocardiogram Metabolic syndrome Gallbladder attack Thyroid disease Abdominal pain Nausea Interstitial cystitis Raynaud disease Hypothyroid Surgical History (Updated 08/01/24 @ 09:17 by Bhavana Whitt) S/P laparoscopic cholecystectomy History of endometrial ablation H/O: hysterectomy H/O ovarian cystectomy Family History (Updated 01/27/25 @ 10:21 by Lj Pedraza RN) Grandmother Hypertension Uterine cancer Thyroid disorder Father Hypertension High cholesterol Thyroid disorder Grandfather Colon cancer Aunt Breast cancer Skin cancer Social History (Updated 07/09/24 @ 09:29 by Alaina Lynn LPN) Smoking Status: Former smoker alcohol intake: current alcohol intake frequency: holidays/special occasions only substance use type: does not use HPI HPI Chief Complaint: Thyroid Details: DESMOND MCDONOUGH, is a 40 F who presents to the office today for evaluation and management of thyroid disease. She has history of hypothyroidism. Recent TSH 6.32 She is taking levothyroxine 112 mcg daily. She has PCOs and is taking metformin. She has history of vitamin D def. ROS Const Constitutional: No fatigue, weight change or change in appetite Eyes Eyes: No change in vision ENT ENT: No dizziness/vertigo or difficulty swallowing Cardio Cardiology: No chest pain at rest, chest pain with exertion, shortness of breath or palpitations Musc Musculoskeletal: No abnormal gait, joint pain, numbness or tingling Neuro Neurology: No abnormal gait, memory loss, numbness or tingling Psych Psychiatric: No change in appetite, No memory loss and No Thoughts of harming yourself/Others Resp Respiratory: No cough, chest congestion or shortness of breath Gastro GI: No abdominal pain, constipation, diarrhea or difficulty swallowing Genitourinary-Female: No burning urination Skin Skin: No itchy eyes or wounds Endo Endocrine: No fatigue or weight change Aller/Imm Allergy/Immunologic: No itchy eyes Exam Const General: cooperative, healthy appearing, comfortable, no acute distress, well developed and not cushingoid Nutritional Appearance: well nourished Orientation: alert, awake and oriented x3 HENIN Head: normal to inspection Ears: hearing grossly normal bilaterally Nose: external nose normal Mouth: oral mucosae normal Eyes General: appearance normal, both eyes and all related structures Alignment and Position: alignment normal Periorbital: periorbital findings normal Eyelids: eyelids normal Conjunctivae: conjunctivae normal Neck Neck: normal visual inspection Neck mass: No Thyroid: thyroid normal Lymphatic: no lymphadenopathy noted Chest Chest palpation inspection: normal inspection of the chest Resp Effort Inspection: normal respiratory effort, able to speak in complete sentences, symmetric chest movement, no audible wheezes and no cough Auscultation: Bilateral: Clear to Auscultation Cardio Rate: regular rate Rhythm: regular rhythm Pulses: posterior tibial pulses present Skin General: no rashes or lesions noted Neuro General: patient alert, patient awake and patient oriented x3 Cranial Nerves: CN's II- (more content not included)... Normal [facility] SCRN MAMM (CAD)W/SAMUEL BILATo n 09-19-2024 SCRN MAMM (CAD)W/SAMUEL BILAT [facility] Imaging Services [address] [place] [address] SCRN MAMM (CAD)W/SAMUEL BILAT MR#: [id number] Acct: [id number] Name: DESMOND MCDONOUGH Rep #: [id number] : 1985 F 39 From: Sanjeev solis MD PCP: BAILEY SantillanC Status: [facility] Study: SCRN MAMM (CAD)W/SAMUEL BILAT Date of Exam: 08/31 11/22 Exam# [id number] Ordering Dr: Philomena Rosenberg NP EDUCATIONAL COORDINATOR -C [id number] MAMMOGRAPHY - BILATERAL SCREENING REASON FOR EXAM: Female, 39 years old. Routine annual screening examination. PERTINENT HISTORY: Aunt with breast cancer. TECHNIQUE: Digital bilateral breast samuel (3D mammographic acquisition) in the CC and MLO projections. 2-D mediolateral oblique (MLO) and craniocaudad (CC) views of both breasts were obtained. CAD: Full Field Digital Mammography with Computer Added Detection was performed. COMPARISON: Comparison is made with prior outside examination dated June 21, 2023. FINDINGS: Breast Composition: The breasts are extremely dense, which lowers the sensitivity of mammography. There are no dominant masses or suspicious calcifications. No other significant abnormalities are identified. There has been no significant change since the prior study. BI/SCRN MAMM (CAD)W/SAMUEL BILAT IMPRESSION: Stable bilateral screening mammogram. Yearly follow-up mammogram recommended. (A) ASSESSMENT CATEGORY: BIRADS Category 1: Negative. A letter regarding these results will be sent to the patient by the facility within 30 days. Approximately 10% of breast cancers are not detected by mammography. A normal mammogram should not delay biopsy of a clinically suspicious abnormality. [id number] Electronically Signed: Sanjeev Evans MD at 12:27 EST Reading Location ID and State: [facility] / [place] , Service support , CC: GYPSY Rosenberg Refrigeration Person: Signed Normal [facility] Surgery Visit Reporton 08-01 Surgery Visit Report [facility] [address] [place], [place] [address] OFFICE VISIT Date of Service: 08/01/24 MR#: [id number] Acct: [id number] Name: DESMOND MCDONOUGH Rep #: [id number] : 1985 Provider: DIANE whiting Age/Sex: 39/F Location: [facility] Status: Signed Intake Vital Signs 07/18/24 08:57 Height 5 ft 3 in Intake Visit Reasons: LAP LING DOS 07/18 Chief Complaint: lap ling DOS 07/18 Allergies No Known Allergies Allergy (Verified 08/01/24 09:16) Medications ???Medication ???Instructions ???Recorded ???Confirmed ???Type ergocalciferol (vitamin D2) 1,250 1,250 mcg PO .EVERY OTHER WEEK 07/09/24 08/01/24 History mcg (50,000 unit) capsule levothyroxine 112 mcg tablet 112 mcg PO QDAY 07/09/24 08/01/24 History mecobalamin (vitamin B12) 500 mcg 500 mcg PO DAILY 07/09/24 08/01/24 History chewable tablet metformin 750 mg tablet,extended 1,500 mg PO DAILY 07/09/24 08/01/24 History release 24 hr nifedipine 60 mg tablet,extended 60 mg PO QPM 07/09/24 08/01/24 History release 24 hr omeprazole 40 mg capsule,delayed 40 mg PO QDAY #30 caps 07/09/24 08/01/24 Rx release Subjective Details: Patient is a 39 y/o F I am following s/p laparoscopic cholecystectomy with attempted cholangiograms by Dr. Farfan on 07/18/24. Patient tolerated the procedure well. Patient denies any nausea, vomiting, fever. She notes her appetite has returned to normal. She notes her bowel habits have returned to normal. She notes a single episode of right sided abdominal discomfort which has since resolved. Pathology demonstrated: MICROSCOPIC DIAGNOSIS Gallbladder, cholecystectomy: Chronic cholecystitis, cholelithiasis and cholesterolosis Objective Details: Abdomen- soft, nontender. Incisions c/d/i. No erythema or infection noted. Ecchymosis noted at the superior aspect of the umbilical incision. Coding Level of Care Code Global Post Op Diagnoses S/P laparoscopic cholecystectomy Z90.49 [facility] Medical History (Updated 07/15/24 @ 11:24 by Gala Perez) Wears glasses Post-menopausal Alcohol use Se's disease Migraine headache Former smoker History of echocardiogram Metabolic syndrome Gallbladder attack Thyroid disease Abdominal pain Nausea Interstitial cystitis Raynaud disease Hypothyroid Surgical History (Updated 08/01/24 @ 09:17 by Bhavana Whitt) S/P laparoscopic cholecystectomy History of endometrial ablation H/O: hysterectomy H/O ovarian cystectomy Social History (Updated 07/09/24 @ 09:29 by Alaina Lynn LPN) Smoking Status: Former smoker alcohol intake: current alcohol intake frequency: holidays/special occasions only substance use type: does not use Assessment and Plan (No Qualifiers) Assessment and Plan (1) S/P laparoscopic cholecystectomy: Status: Acute Plan: Recommend no strenuous activity for 2 additional week May return to walking Discussed signs of infection Discussed if the RUQ discomfort becomes more consistent then contact our office Follow-up as needed 08/01/24 1114 Date Carla Ashley Signature: Date (if applicable) CC: GYPSY Springer [facility] 12 Lead EKGon 07-18-2024 12 Lead EKG [facility] Cardiovascular Services [address] [place] [address] 12 Lead EKG 07/18/24 0842 MR#: [id number] Acct: [id number] Name: DESMOND MCDONOUGH Rep #: [id number] : 1985 39 From: Jd Cedeño MD Attending Dr: Dr. Diana Farfan MD Status: D [facility] Ordering Dr: Mushtaq Aguila MD Date: 07/18/24 Location: [facility] Sex: F C Admitted: Test Reason : PRE OP Blood Pressure : / mmHG Vent. Rate : 092 BPM Atrial Rate : 092 BPM P-R Int : 144 ms QRS Dur : 084 ms QT Int : 348 ms P-R-T Axes : 051 025 050 degrees QTc Int : 430 ms Normal sinus rhythm Normal ECG No previous ECGs available Confirmed by Jd Cedeño ([id number]), editor school photograph JULIEN DIETZ ([id number]) on 07/22/2024 1:23:35 PM Referred By: Diana Farfan Confirmed By:Jd Cedeño 07/22/24 1323 Date Jd Cedeño MD CC: EDUCATIONAL COORDINATOR-C NP. Fanny Springer; Dr. Mushtaq Aguila MD; Dr. Diana Farfan MD Signed Normal [facility] Cholangiogram/ O R,Initialon 07-18-2024 Cholangiogram/ O R,Initial [facility] Imaging Services [address] [place] [address] Cholangiogram/ O R,Initial MR#: [id number] Acct: [id number] Name: DESMOND MCDONOUGH Rep #: [id number] : 1985 F 39 From: Sanjeev solis MD PCP: NP. Fanny Springer, EDUCATIONAL COORDINATOR-C Status: [facility] Study: Cholangiogram/ O R,Initial Date of Exam: 07/18 Exam# [id number] Ordering Dr: Diana Farfan MD [id number] STUDY: INTRAOPERATIVE CHOLANGIOGRAM. REASON FOR EXAM: Female, 39 years old. Laparoscopic cholecystectomy. FLUOROSCOPY TIME (if supplied): ( 16 seconds ) minutes/seconds. 5.57 mGy. TECHNIQUE: Attempted cholangiogram. COMPARISON: None. FINDINGS: Unsuccessful cholangiogram. RAD/Cholangiogram/ O R,Initial IMPRESSION: Unsuccessful cholangiogram. Electronically Signed: Sanjeev Evans MD at 15:25 EDT Reading Location ID and State: [facility] / [place] , Service support , CC: EDUCATIONAL COORDINATOR-Juan Springer; Dr. Diana Farfan MD Refrigeration Person: Signed Normal [facility] Discharge Instructionon 06-30 Discharge Instruction [facility] Medical Records Department [address] [place] [address] Instructions for Home/Discharge Instructions 07/18/24 1137 MR#: [id number] Acct: [id number] Name: CEASARDESMOND SALOME Rep #: [id number] : 1985 39 From: Diana Farfan MD PCP: GYPSY Lowry Status:REG [facility] Discharge Instructions Diet Discharge Diet: Light diet - advance as tolerated Activity Discharge Activity: May Not Drive (while taking narcotic pain medications.) May shower in (days): 1 Lifting Restrictions: no lifting >20 lbs x 2 wks, no strenuous exercise for 4 wks Dressing / Incision Call your doctor if your incision/area has: Continuous Slow Oozing, Sudden Increased Bleeding, Increased Pain/ Swelling, Increased Redness, Foul Smelling Discharge and Swelling at the incision site Call your doctor if you observe: Fever of 101 or Higher Remove Dressing in: 2 days Cleanse incision/area with: Soap Water Additional Dressing/Incision Instructions:: Steri-Strips will fall off in 7 to 10 days, if they do not fall off okay to remove after 10 days. Follow Up Care Please Follow Up With: Diana Farfan MD When: Call the office for a follow-up appointment 2 weeks; after 5 PM and on the weekends call [phone] with any concerns. Test Results: Test results from this visit will be discussed in further detail at your follow-up appointment, if applicable. Discharge Plan Admission Attending Provider: Diana Farfan Primary Care Provider: Fanny Springer Instructions Print Language: Filipino Discharge Orders/Prescriptions Prescriptions: New oxycodone 5 mg capsule 5 mg PO Q6H PRN (Reason: pain) 3 Days Qty: 7 0RF Continued levothyroxine 112 mcg tablet 112 mcg PO QDAY ergocalciferol (vitamin D2) 1,250 mcg (50,000 unit) capsule 1,250 mcg PO .EVERY OTHER WEEK nifedipine 60 mg tablet extended release 24hr 60 mg PO QPM metformin 750 mg tablet extended release 24 hr 1,500 mg PO DAILY mecobalamin (vitamin B12) 500 mcg tablet,chewable 500 mcg PO DAILY omeprazole 40 mg capsule,delayed release(DR/EC) 40 mg PO QDAY Qty: 30 0RF Rx Instructions: swallow whole; do not crush, chew, dissolve, cut, break--take in PM due to levothyroxine Referrals / Follow Up: Fanny Springer NP-C [Primary Care Provider] - Disposition Disposition (needs filled in before D/C Order can be placed): Home, Self Care 07/18/24 1137 Diana Farfan MD CC: EDUCATIONAL COORDINATOR-C NP. Fanny Springer Signed Normal [facility] MR/POSTOP.Sylvia 07-18-2024 MR/POSTOP.[facility] Medical Records Department [address] [place] [address] Anesthesia Postop Eval I 07/18/24 1151 MR#: [id number] Acct: [id number] Name: DESMOND MCDONOUGH Rep #: [id number] : 1985 39 From: Coby Chisholm BENCH ASSEMBLER OPERATOR PCP: BAILEY LowryC Status:REG SDC Y Race: C Location: [place] [address] Anesthesia: Postop Eval I Current Vital Signs Temperature: 98.2 F Pulse Rate: 92 Blood Pressure: 127/80 Respiratory Rate: 16 Pulse Ox: 95 Oxygen Delivery Method: Room Air Assessment Airway patent: Yes Spontaneous unlabored respirations: Yes Mental status: Awake and Calm nausea: No Vomiting: No Anesthesia Complication: No Fluid Hydration Crystalloid volume administer (ml): 1,000 Total IV fluid infused: 1,000 Progress Note Anesthesia document: Postop Eval 1 completed: Yes 07/18/24 1152 Date Coby Chisholm BENCH ASSEMBLER OPERATOR Cosigner Signature: Date CC: Signed Normal [facility] MR/WYRSSWKP7ss 07-18-2024 [facility] Medical Records Department [address] [place] [address] Anesthesia Postop Eval II 07/18/24 1315 MR#: [id number] Acct: [id number] Name: DESMOND MCDONOUGH Rep #: [id number] : 1985 39 From: Mushtaq Aguila MD PCP: GYPSY Lowry Status:REG SDC Y Race: C Location: [place] [address] Anesthesia Postop Eval I Sum Postop Eval Completion status Anesthesia document: Postop Eval 1 completed: Yes Anesthesia Postop Eval I Summary Anesthesia Postop Eval I Summary: Anesthesia Postop Eval I: Assessment Summary Airway patent Yes 07/18/24 11:52 BENCH ASSEMBLER OPERATOR.VALERIAOBChrista Spontaneous unlabored Yes 07/18/24 11:52 BENCH ASSEMBLER OPERATOR.MONTSE respirations Mental status Awake,Calm 07/18/24 11:52 BENCH ASSEMBLER OPERATOR.VALERIAOBY nausea No 07/18/24 11:52 BENCH ASSEMBLER OPERATOR.SKOBY Vomiting No 07/18/24 11:52 BENCH ASSEMBLER OPERATOR.SKOBY Anesthesia Postop Eval I: Fluid Summary Crystalloid volume administer 1,000 07/18/24 11:52 BENCH ASSEMBLER OPERATOR.SKOBY (ml) Colloids volume administered ( ml) Blood Product volume administered (ml) Total IV fluid infused 1,000 07/18/24 11:52 BENCH ASSEMBLER OPERATOR.MONTSE Anesthesia Postop Eval I: Summary Notes Anesthesia Complication No 07/18/24 11:52 BENCH ASSEMBLER OPERATOR.SKOBChrista Anesthesia Complication Comment: Post-operative progress note Anesthesia: Postop Eval II Evaluation Mental status: Awake Pain Level: 0 nausea: No Vomiting: No 07/18/24 1315 Date Mushtaq Bhatignfiordaliza Signature: Date CC: Signed Normal [facility] Operative Reporton 4 Operative Report [facility] Medical Records Department [address] [place] [address] Operative Report 07/18/24 1134 MR#: [id number] Acct: [id number] Name: DESMOND MCDONOUGH Rep #: [id number] : 1985 39 From: Diana Farfan MD PCP: GYPSY Lowry Status:[facility] Location: [facility] Report of Operation Date of Procedure: 07/18/24 Pre-Operative Diagnosis: Cholelithiasis, epigastric/right upper quadrant abdominal pain Post-Operative Diagnosis: Same Surgery/Procedure Performed:: Laparoscopic cholecystectomy with attempted cholangiograms Surgeon: Diana Farfan racecar driver: Charlotte Schofield Type of Anesthesia: General/Supplemental Anesthesiologist: Mushtaq Aguila Special Medications: Ancef 2 g IV x 1 Specimen's removed: Gallbladder Estimated Blood Loss (mL): 20 cc Description of Procedure: Indications: this is a 39 year-old female who developed abdominal pain/nausea/vomiting and on workup was found to have cholelithiasis, with a normal common bile duct. Laparoscopic cholecystectomy was elected. Description procedure: The patient was placed on operating table in supine position. A timeout was completed verifying correct patient, procedure, site, position and special equipment prior to beginning procedure. General Anesthesia was induced. The abdomen was prepped and draped in usual sterile fashion. An incision was made in the natural skin line above the umbilicus. The fascia was elevated and incised. The peritoneum was elevated and incised. Entry into the peritoneum was confirmed visually and no bowel was noted in the vicinity of the incision. Warner trocar was placed. The abdomen was insufflated with carbon dioxide to a pressure of 12-15 mmHg. Patient tolerated insufflation well. The laparoscope was then inserted and abdomen inspected. No injuries from initial trocar placement were noted. Additional trochars were then inserted in the following locations 5 mm trocar in the epigastrium and 2 more 5 mm trochars along the right costal margin. The abdomen was inspected no abnormalities were found. The table is placed in reverse Trendelenburg position with the right side up. The dome of the gallbladder was grasped with atraumatic grasper passed through the lateral port and retracted over the dome of the liver. Infundibulum was then grasped with atraumatic grasper through the midclavicular port and retracted to the right lower quadrant. This maneuver exposed Calot's triangle. The peritoneum overlying the gallbladder infundibulum was then incised and cystic duct and artery identified and circumferentially dissected. Alonzo catheter and Ranfac catheter were attempted for cholangiograms which were unable to be completed were used for cholangiograms. Additional small incision made in right upper quadrant to accommodate the Ranfac catheter. The cystic duct and artery were then doubly clipped and divided close to the gallbladder. The gallbladder then dissected from its peritoneal attachments by electrocautery. Gallbladder was noted to be partially intrahepatic. Odalis was used for hemostasis. Hemostasis was checked and the gallbladder and contained stones were removed using the endoscopic retrieval bag through the umbilical port. The gallbladder is passed off table as specimen. The gallbladder fossa was irrigated with saline and hemostasis obtained. There is no evidence of bleeding from the gallbladder fossa or cystic artery leakage of bile from the cystic duct stump. Secondary trochars removed under direct vision. No bleeding was noted the trocar sites. The laparoscope was withdrawn and umbilical trocar removed. The abdomen was allowed to collapse. The fascia of the 12 mm trocar was closed with a [id number] 0 Vicryl suture. The skin was closed with sutures of 4-0 Monocryl and Steri-Strips. The patient was extubated. The patient tolerated procedure well and was taken to the postanesthesia care unit in stable condition. Complications none 07/18/242211 Cosigner Signature (if applicable): CC: EDUCATIONAL COORDINATORMynor Springer; Dr. Diana Farfan MD Signed Normal [facility] Surgery Specimen Level IIIon 07-18-2024 Surgery Specimen Level III -------- Patient Age/Sex Location Account Attending Physician -------- DESMOND MCDONOUGH 39/F [facility] [id number] Dr. Diana Farfan MD -------- Specimen: [id number] Received: 07/18/24 Status: LILIBETH Shannon Num: [id number] Spec Type: HEATHER Murray Dr: Dr. Diana Farfan MD HEADER OPERATION: Laparoscopic, cholecystectomy with IOC PRE-OP DIAGNOSIS: Cholelithiasis, abdominal pain TISSUE SUBMITTED: Gallbladder -------- MICROSCOPIC DIAGNOSIS Gallbladder, cholecystectomy: Chronic cholecystitis, cholelithiasis and cholesterolosis. MURIEL. 07/22 MICROSCOPIC DESCRIPTION Slides are reviewed. GROSS DESCRIPTION Received is one container labeled with the patient's name and designated gallbladder. The specimen consists of a gallbladder measuring 7.5 cm in length and up to 3.0 cm in diameter. The external surface is pink-freitas, smooth and glistening for the most part. Focally it is granular, hemorrhagic and contains cautery artifact. The gallbladder contains green-yellow bile and six mulberry yellow-green stones. Four smaller stones measuring in aggregate 1.0 x 0.5 x 0.3 cm and 0.1 to 0.3cm in greatest dimension. Two larger stones measures 1.7 and 1.5cm in greatest dimension. The mucosa is bile-stained and without any mass lesions. The gallbladder wall measures up to 0.3 cm in thickness. The mucosa also shows several yellowish streaks consistent with cholesterolosis. Sales Development Associate sections from the gallbladder and the cystic duct are submitted in one cassette. / SJ: 07/19/2024 TC:3 [facility]: [id number] -------- Patient Age/Sex Location Account Attending Physician -------- CEASARDESMOND SALOME 39/F [facility] [id number] Dr. Diana Farfan MD -------- Signed (signature on file) Dr. Manish Thakkar MD 07/22/24 1151 -------- Normal [facility] Comment on above: Performed By: #### P SUIII #### [facility] [address] [place] [address], [id number] BMP with eGFRon 04-22-2024 AGE 39 years Normal [facility] Comment on above: Performed By: #### 2 60703 #### [facility],[address] [place] [address] Anion gap [Moles/Vol] 11 mmol/L Normal 10 - 20 [facility] Comment on above: Performed By: #### 2 47372 #### [facility],[address] [place] [address] BMP with eGFR Normal [facility] Comment on above: Result Comment: BASI C METABOLIC PANEL Performed By: #### 2 76251 #### [facility],[address] [place] [address] Calcium [Mass/Vol] 8.9 mg/dL Normal 8.5 - 10.1 [facility] Comment on above: Performed By: #### 2 39341 #### [facility],[address] [place] [address] Chloride [Moles/Vol] 101 mmol/L Normal 98 - 107 [facility] Comment on above: Performed By: #### 2 62436 #### [facility],[address] [place] [address] CO2 [Moles/Vol] 25.0 mmol/L Normal 21.0 - 32.0 [facility] Comment on above: Performed By: #### 2 58947 #### [place] [id number] Creatinine [Mass/Vol] 0.85 mg/dL Normal 0.55 - 1.02 [facility] Comment on above: Performed By: #### 2 96379 #### [place] [id number] GFR/1.73 sq M.predicted among non-blacks MDRD (S/P/Bld) [Vol rate/Area] mL/min/{1.73_m2} Normal 60 - 999 [facility] Comment on above: Performed By: #### 2 66091 #### [place] [id number] Result Comment: ACCO RDING TO THE NATIONAL KIDNEY DISEASE EDUCATION PROGRAM(NKDE), A NORMAL eGFR IS A VALUE GREATER THAN OR EQUAL TO 60 ML/MIN/1.73 SQ METERS. CHRONIC KIDNEY DISEASE: <60mL/MIN/1.73 SQ METERS KIDNEY FAILURE: <15mL/MIN/1.73 SQ METERS THIS TEST SHOULD ONLY BE USED FOR PATIENTS 18 YEARS OF AGE AND OLDER. Glucose [Mass/Vol] 84 mg/dL Normal 74 - 106 [facility] Comment on above: Performed By: #### 2 76120 #### [facility],[address] [place] [address] Potassium [Moles/Vol] 3.9 mmol/L Normal 3.5 - 5.1 [facility] Comment on above: Performed By: #### 2 47071 #### [facility],[address] [place] [address] Sodium [Moles/Vol] 133 mmol/L Low 136 - 145 [facility] Comment on above: Performed By: #### 2 69530 #### [facility],[address] [place] [address] Urea nitrogen [Mass/Vol] 15 mg/dL Normal 7 - 18 [facility] Comment on above: Performed By: #### 2 37930 #### [facility],[address] [place] [address] TSHon 04-22-2024 TSH Qn 0.52 m[IU]/L Normal 0.35 - 3.74 [facility] Comment on above: Performed By: #### 2 85214 #### [facility],[address] [place] [address] CMP with eGFRon 03-09-2024 AGE 39 years Normal [facility] Comment on above: Performed By: #### 2 71589 #### [facility],[address] [place] [address] Albumin [Mass/Vol] 4.0 g/dL Normal 3.4 - 5.0 [facility] Comment on above: Performed By: #### 2 00158 #### [facility],[address] [place], [place] [id number] Albumin/Globulin [Mass ratio] 1.2 {ratio} Normal 0.9 - 1.6 [facility] Comment on above: Performed By: #### 2 85475 #### [facility],[address] [place] [address] ALK PHOS 55 U/L Normal 46 - 116 [facility] Comment on above: Performed By: #### 2 14548 #### [facility],[address] [place] [address] ALT [Catalytic activity/Vol] 19 U/L Normal 16 - 63 [facility] Comment on above: Performed By: #### 2 04298 #### [facility],[address] [place] [address] Anion gap [Moles/Vol] 13 mmol/L Normal 10 - 20 [facility] Comment on above: Performed By: #### 2 35792 #### [facility],[address] [place] [address] AST [Catalytic activity/Vol] 14 U/L Normal 13 - 39 [facility] Comment on above: Performed By: #### 2 83743 #### [facility],[address] [place] [address] B/C RATIO 11 ratio Normal 0 - 30 [facility] Comment on above: Performed By: #### 2 77172 #### [facility],[address] [place] [address] Bilirubin [Mass/Vol] 0.2 mg/dL Normal 0.2 - 1.0 [facility] Comment on above: Performed By: #### 2 04037 #### [facility],[address] [place], [place] [phone] Calcium [Mass/Vol] 8.7 mg/dL Normal 8.5 - 10.1 [facility] Comment on above: Performed By: #### 2 77464 #### [facility],[address] [place], [place] [phone] Chloride [Moles/Vol] 106 mmol/L Normal 98 - 107 [facility] Comment on above: Performed By: #### 2 09504 #### [facility],[address] [place], [place] [phone] CMP with eGFR Normal [facility] Comment on above: Result Comment: COMP REHENSIVE METABOLIC PANEL Performed By: #### 2 74084 #### [facility],[address] [place] [address]29 CO2 [Moles/Vol] 25.1 mmol/L Normal 21.0 - 32.0 [facility] Comment on above: Performed By: #### 2 79921 #### [facility],[address] [place] [address] Creatinine [Mass/Vol] 1.09 mg/dL High 0.55 - 1.02 [facility] Comment on above: Performed By: #### 2 33233 #### [facility],[address] [place] [address] eGFR 56 ML/MINUTE Low 60 - 999 [facility] Comment on above: Performed By: #### [id number] #### [facility],[address] [place] [address] GFR/1.73 sq M.predicted among non-blacks MDRD (S/P/Bld) [Vol rate/Area] mL/min/{1.73_m2} Normal 60 - 999 [facility] Comment on above: Result Comment: ACCO RDING TO THE NATIONAL KIDNEY DISEASE EDUCATION PROGRAM(NKDE), A NORMAL eGFR IS A VALUE GREATER THAN OR EQUAL TO 60 ML/MIN/1.73 SQ METERS. CHRONIC KIDNEY DISEASE: <60mL/MIN/1.73 SQ METERS KIDNEY FAILURE: <15mL/MIN/1.73 SQ METERS THIS TEST SHOULD ONLY BE USED FOR PATIENTS 18 YEARS OF AGE AND OLDER. Performed By: #### 2 [id number] #### [facility],[address] [place] [address] Globulin (S) [Mass/Vol] 3.4 g/dL Normal 1.5 - 3.8 [facility] Comment on above: Performed By: #### 2 [id number] #### [address] [address] Glucose [Mass/Vol] 111 mg/dL High 74 - 106 [facility] Comment on above: Performed By: #### 2 [id number] #### [facility],[address] [place], [place] [id number] Potassium [Moles/Vol] 4.0 mmol/L Normal 3.5 - 5.1 [place] [facility] Comment on above: Performed By: #### 2 [id number] #### [facility],[address] [place] [address] Protein [Mass/Vol] 7.4 g/dL Normal 6.4 - 8.2 [facility] Comment on above: Performed By: #### 2 [id number] #### [facility],[address] [place] [address] Sodium [Moles/Vol] 140 mmol/L Normal 136 - 145 [facility] Comment on above: Performed By: #### 2 [id number] #### [facility],[address] [place], [place] [id number] Urea nitrogen [Mass/Vol] 12 mg/dL Normal 7 - 18 [facility] Comment on above: Performed By: #### 2 [id number] #### [facility],[address] [place] [address] TSHon 03-09-2024 TSH Qn 6.32 m[IU]/L High 0.35 - 3.74 [facility] Comment on above: Performed By: #### 2 [id number] #### [facility],[address] [place] [address] Insulinon 08-16-2021 Insulin 12.9 mU/L Normal 3.0-25.0 [facility] Comment on above: Performed By: #### I NSULN #### [facility] Immuno Assay [address] [address] #### TESTO #### [facility] Routine Lab [address] [place] [address] Testosteroneon 08-15-2021 Testosterone [Mass/Vol] 27 ng/dL Normal <40 [facility] Comment on above: Performed By: #### I NSULN #### [facility] Immuno Assay [address] [place] [id number] #### TESTO #### [facility] Routine Lab [address] [place], [place] [address] Vital Signs Date Time Vital Sign Value Performing Clinician Faci lity 07-11-2025 09:34-0400 Body height 160.02 cm Philomena Rosenberg EDUCATIONAL COORDINATOR-C Work Phone: [facility] 07-11-2025 09:34-0400 Body mass index (BMI) [Ratio] 24 kg/m2 Philomena Rosenberg EDUCATIONAL COORDINATOR-C Work Phone: [facility] 07-11-2025 09:34-0400 Body temperature 97.4 [degF] Philomena Rosenberg EDUCATIONAL COORDINATOR-C Work Phone: [facility] 07-11-2025 09:34-0400 Body weight 61.74 kg Philomena Rosenberg EDUCATIONAL COORDINATOR-C Work Phone: [facility] 07-11-2025 09:34-0400 Diastolic blood pressure 60 mm[Hg] Philomena Rosenberg EDUCATIONAL COORDINATOR-C Work Phone: [facility] 07-11-2025 09:34-0400 Heart rate 74 /min Philomena Rosenebrg EDUCATIONAL COORDINATOR-C Work Phone: [facility] 07-11-2025 09:34-0400 Respiratory rate 16 /min Philomena Rosenberg EDUCATIONAL COORDINATOR-C Work Phone: [facility] 07-11-2025 09:34-0400 SaO2% (BldA) [Mass fraction] 98 % Philomena Rosenberg EDUCATIONAL COORDINATOR-C Work Phone: [facility] 07-11-2025 09:34-0400 Systolic blood pressure 100 mm[Hg] Philomena Rosenberg EDUCATIONAL COORDINATOR-C Work Phone: [facility] 07-04-2025 13:00-0400 Body height 160.02 cm Philomena Rosenberg EDUCATIONAL COORDINATOR-C Work Phone: [facility] 07-04-2025 12:59-0400 Body mass index (BMI) [Ratio] 24.5 kg/m2 Philomena Rosenberg EDUCATIONAL COORDINATOR-C Work Phone: [facility] 07-04-2025 12:59-0400 Body weight 62.65 kg Philomena Rosenberg EDUCATIONAL COORDINATOR-C Work Phone: [facility] 07-04-2025 12:59-0400 Diastolic blood pressure 81 mm[Hg] Philomena Rosenberg EDUCATIONAL COORDINATOR-C Work Phone: [facility] 07-04-2025 12:59-0400 Heart rate 91 /min Philomena Rosenberg EDUCATIONAL COORDINATOR-C Work Phone: [facility] 07-04-2025 12:59-0400 Systolic blood pressure 134 mm[Hg] Philomena Rosenberg EDUCATIONAL COORDINATOR-C Work Phone: [facility] 05-30-2025 15:04-0400 Body height 160.02 cm Philomena Rosenberg EDUCATIONAL COORDINATOR-C Work Phone: [facility] 05-30-2025 15:04-0400 Body mass index (BMI) [Ratio] 23.6 kg/m2 Philomena Rosenberg EDUCATIONAL COORDINATOR-C Work Phone: [facility] 05-30-2025 15:04-0400 Body weight 60.32 kg Philomena Rosenberg EDUCATIONAL COORDINATOR-C Work Phone: [facility] 05-30-2025 15:04-0400 Diastolic blood pressure 84 mm[Hg] Philomena Rosenberg EDUCATIONAL COORDINATOR-C Work Phone: [facility] 05-30-2025 15:04-0400 Systolic blood pressure 124 mm[Hg] Philomena Rosenberg EDUCATIONAL COORDINATOR-C Work Phone: [facility] Encounters Encounter Date Encounter Type Care Provider Facility Start: 07-11-2025 End: 07-11-2025 ambulatory Philomena Rosenberg EDUCATIONAL COORDINATOR Facility:[facility] Start: 07-11-2025 End: 07-11-[address] Judy Tapia MD -[facility] Work Phone: Start: 07-04-2025 End: 07-04-[address] Rubi Cantu MD -[facility] Work Phone: Start: 07-04-2025 End: 07-04-2025 ambulatory Philomena Rosenberg EDUCATIONAL COORDINATOR-C Work Phone: -[facility] Start: 05-30-2025 End: 05-30-[address] Rubi Cantu MD -[facility] Work Phone: Start: 05-30-2025 End: 05-30-[address] Rubi Cantu MD [facility] Start: 05-30-2025 End: 05-30-2025 ambulatory Philomena Rosenberg EDUCATIONAL COORDINATOR-C Work Phone: -[facility] Start: 05-30-2025 End: 05-30-2025 ambulatory Philomena Rosenberg EDUCATIONAL COORDINATOR-C Work Phone: -Laboratory Start: 05-30-2025 End: 05-30-[address] Fredy Zhao MD -Laboratory Work Phone: Start: 05-30-2025 End: 05-30-2025 ambulatory Philomena Rosenberg EDUCATIONAL COORDINATOR Facility:[facility] Start: 03-18-2025 End: 03-18-2025 Patient encounter procedure Philomena Rosenberg EDUCATIONAL COORDINATOR-C -Laboratory Work Phone: Start: 03-18-2025 End: 03-18-2025 ambulatory Philomena Rosenberg EDUCATIONAL COORDINATOR Facility:[facility] Start: 03-12-2025 End: 03-12-2025 ambulatory PHILOMENA ROSENBERG [employer] PLM CONSULTANT-[employer] SERVICES MANAGER Facility:A Start: 03-12-2025 End: 03-12-2025 Patient encounter procedure CURT MARIEE [employer] PLM CONSULTANT-[employer] SERVICES MANAGER [facility] Start: 02-18-2025 ambulatory FANNY LAROSE [facility] Start: 01-27-2025 End: 01-27-2025 ambulatory Fredy Zhao Facility:[facility] Start: 01-16-2025 End: 01-16-2025 ambulatory CURT MARIEE [employer]M CONSULTANT-[employer] SERVICES MANAGER Facility:A Start: 01-16-2025 End: 01-16-2025 Patient encounter procedure CURT MARIEE [employer]M CONSULTANT-[employer] SERVICES MANAGER [facility] Start: 09-19-2024 End: 09-19-2024 ambulatory Philomena Rosenberg NP Facility:[facility] Start: 08-01-2024 End: 08-01-2024 ambulatory [facility] Facility:[facility] Start: 07-18-2024 End: 07-18-2024 ambulatory [facility] Facility:[facility] Start: 04-22-2024 End: 04-22-2024 ambulatory [facility] Start: 03-08-2024 End: 03-08-2024 ambulatory [facility] Start: 09-07-2023 End: 09-08-2023 ambulatory CURT MARIEE [employer]M CONSULTANT-[employer] SERVICES MANAGER Facility:A Procedures Date Procedure Procedure Detail Performing Clinician Start: 03-18-2025 Vitamin D, 25-hydrox y measurement Philomena Rosenberg EDUCATIONAL COORDINATOR-C Work Phone: Comment on above: Vitamin D StatusDefi ciency: <20 ng/mL (50nmol/L)Insufficiency: 20-30 ng/mL (50-75 nmol/L)Sufficiency: 30-100 ng/mL (75-250 nmol/L)Toxicity: >100 ng/mL (>250 nmol/L) Start: 10-30-2018 Hysterectomy CURT VENTURA [employer]M CONSULTANT-[employer] SERVICES MANAGER Comment on above: PARTIAL Start: 03-04-2009 Excision of cyst of ovary CURT MARIEE [employer]M CONSULTANT-[employer] MANAGER Comment on above: RIGHT Start: 10-30-2008 Hydrodistension of bladder CURT MARIEE APRN-[employer] SERVICES MANAGER Comment on above: AND 2018 WITH UTERIN E ABLATION Start: 10-30-2003 History of laparoscopy CURT MARIEE APRN-[employer] MANAGER History of cholecystectomy S/P laparoscopic cholecystectomy Philomena Rosenberg EDUCATIONAL COORDINATOR-C Work Phone: Plan of Treatment Date Care Activity Detail Author Lipoprotein a [Mass/volume] in Serum or P [facility] T4 free measurement [facility] Thyroid stimulating hormone measurement [facility] Immunizations Immunization Date Immunization Notes Care Provider Michael carey 10-02-2014 influenza, injectabl e, quadrivalent, preservative free CURT MARIEE APRN-[employer] SERVICES MANAGER [facility] 05-10-2012 tetanus toxoid, redu erika diphtheria toxoid, and acellular pertussis vaccine, adsorbed CURT MARIEE APRN-[employer] SERVICES MANAGER [facility] Payers Date Payer Category Payer Unknown [id number] 2024 Self-pay 2024 Unknown [id number] 2023 Unknown [id number] 2023 Unknown [id number] 1985 Unknown [id number] 2.16.8 [id number] 1985 Unknown [id number] 2.16.8 [id number] 1985 Unknown [id number] 2.16.8 [id number] 1985 Unknown [id number] 2.16.8 [id number] 1985 Unknown [id number] 2.16.8 [id number] Unknown [id number] 2.16.8 [id number] Unknown [id number] 2.16.8 [id number] Unknown [id number] 2.16.8 [id number] Unknown [id number] 2.16.8 [id number] Unknown [id number] 2.16.8 [id number] Unknown [id number] 2.16.8 40.1.252676.3.579.2.462 Unknown [id number] 2.16.8 [id number] Unknown [id number] 2.16.8 [id number] Unknown [id number] 2.16.8 [id number] Unknown [id number] 2.16.8 [id number] Unknown [id number] 2.16.8 [id number] Unknown [id number] 2.16.8 [id number] Social History Date Type Detail Facility Start: 09-07-2023 End: 07-11-2025 Tobacco smoking status Ex-smoker (finding) [facility] Sexual Orientation [facility] Start: 09-28-2011 Sex Female (finding) [facility] Start: 1985 Sex Assigned At Female [facility] Gender Identity Identifies as fe male gender (finding) [facility] Sexual Orientation Heterosexual (finding) [facility] Medical Equipment Procedure Code Equipment Code Equipment Original Text Equipment Identifier Dates Total cholecystectomy with exploration of common bile duct CLIP,ITZ THOMAS FDA Start: 07-18-2024 Total cholecystectomy with exploration of common bile duct CLIP,GeriJoyZENY [employer] WILLIAM FDA Start: 07-18-2024 Total cholecystectomy with exploration of common bile duct CLIP,GeriJoyZNEY [employer] WILLIAM FDA Start: 07-18-2024 Total cholecystectomy with exploration of common bile duct CLIP,ITZ THOMAS FDA Start: 07-18-2024 Total cholecystectomy with exploration of common bile duct CLIP,HEMBENITACK BINU THOMAS FDA Start: 07-18-2024 Total cholecystectomy with exploration of common bile duct CLIP,HEMOLOCK MED WECK FDA Start: 07-18-2024 Total cholecystectomy with exploration of common bile duct CLIP,HEMZENY THOMAS FDA Start: 07-18-2024 Total cholecystectomy with exploration of common bile duct CLIP,HEMZENY THOMAS FDA Start: 07-18-2024 Evaluation note 05-30-2025 Note Date & Type Note Facility 05-30-2025 Evaluation note Diagnosis Onset Date Resolution Other obesity acute May 30, 2025 2:55pm Encounter for routine gynecological examination noneactive May 30, 2025 2:55pm [facility] Work Phone: Evaluation note 05-30-2025 Note Date & Type Note Facility 05-30-2025 Evaluation note Diagnosis Onset Date Resolution Other obesity acute May 30, 2025 2:55pm Encounter for routine gynecological examination noneactive May 30, 2025 2:55pm Other obesity acute July 042024 12:47pm [employer] Work Phone: Evaluation note 05-30-2025 Note Date & Type Note Facility 05-30-2025 Evaluation note Diagnosis Onset Date Resolution Other obesity acute May 30, 2025 2:55pm Encounter for routine gynecological examination noneactive May 30, 2025 2:55pm Other obesity acute July 042024 12:47pm 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 chronic Septembe r 2024 12:47pm Metabolic syndrome chronic Septem jesenia 2024 12:47pm Vitamin D deficiency chronic Sept ember 2024 12:47pm [employer] Work Phone: Evaluation + Plan note 01-16-2025 Radiology Note Date & Type Note Facility 01-16-2025 Evaluation + Plan note Future Scheduled TestsMRI Breast Bilateral Fast Screening 01/16/25 [facility] Clinical Note 07-18-2024 Note Date & Type Note Facility 07-18-2024 Note [facility] Medical Records Department [address] [place] [address] History Physical Exam 07/18/24 0837 MR#: [id number] Acct: [id number] Name: DESMOND MCDONOUGH Rep #: [id number] : 1985 39 From: Diana Farfan MD PCP: GYPSY Lowry Status:[facility] Location: [place] [address] History and Physical Date of Admission: 07/18/24 Date of Service: 07/09/24 MR#: [id number] Acct: [id number] Name: DESMOND MCDONOUGH Rep #: [id number] : 1985 Provider: Dr. Diana Farfan MD Age/Sex: 39/F Location: [facility] Status: Signed Intake Vital Signs 06/30/2419:54 07/09/2409:29 Height 5 ft 3 in 5 ft 3 in Weight: 170 lb BMI 30.1 BP 112/82 H Blood Pressure Location Rt brachial Position Sitting Respiration 18 Pulse 72 Pulse Source Monitor Temp 97.2 F L Temp Source Temporal Pulse Oximetry (%) 99 Oxygen Delivery Method room air Intake Visit Reasons: GALLBLADDER Chief Complaint: gallbladder Accompanied by: Is patient in pain?: No Allergies No Known Allergies Allergy (Verified 07/09/24 09:30) [facility] Medical History (Updated 07/09/24 @ 09:[address] Diana Farfan MD) Gallbladder attack Nausea Thyroid disease Abdominal pain Interstitial cystitis Raynaud disease Hypothyroid Surgical History (Updated 07/09/24 @ 09:29 by Alaina Lynn LPN) H/O: hysterectomy H/O ovarian cystectomy Social History (Updated 07/09/24 @ 09:29 by Alaina Lynn LPN) Smoking Status: Former smoker alcohol intake: current alcohol intake frequency: holidays/special occasions only substance use type: does not use HPI HPI HPI: 39-year-old female presents with her due to gallstones and abdominal pain. Patient did go to the ER on 06/30 due to epigastric pain wrapping around her sides at 7 PM patient last ate at 3 PM. Patient's labs are within normal limit except for a lipase of 120. Patient did have an outpatient ultrasound showed multiple gallstones called the wall 3.2 mm. Patient states she also had a tach early Monday a.m. at 1230 patient states she last ate at 7 PM unsure what she ate. Patient states since then she has been good no more further attacks but does have minimal pain with palpation. Patient has lost about 50 pounds this year was previously on Mounjaro but did quit in October. ROS General General: Yes weight change (loss); No appetite, fatigue, colon cancer, breast cancer or weakness HEENT HEENT: No difficulty swallowing, eye injury, eye surgery, swollen glands or hoarseness Endo Endocrine: Yes thyroid disease; No diabetes mellitus, thyroid cancer, Hair loss, heat intolerance or cold intolerance Skin Skin: No rash or changing moles Musc Musculoskeletal: No back problems, arthritis, rheumatoid arthritis, gout or joint pain Cardio Cardiovascular: No murmur, pacemaker, heart disease, atrial fibrillation, high blood pressure, heart attack, heart stent, palpitations, shortness of breat with exertion or chest pain Psych Psychiatric: No depression, anxiety or hearing voices Resp Respiratory: No shortness of breath, No sleep apnea, No cough, No COPD, No asthma, No emphysema and No wheezing Gastro Gastrointestinal: Yes abdominal pain, Yes nausea or vomiting, No diarrhea, No constipation, No blood in stool, No acid reflux, No hemorrhoids, No ulcers, Yes gallbladder problem and No black,tarry stools Brodie Hematologic: No blood thinners, No blood disorders, No bleeding, No anemia and No blood clots Neuro Neurologic: No numbness, No tingling and No weakness Exam Const General: cooperative, healthy appearing, comfortable and no acute distress [facility] Head: normocephalic and atraumatic Neck Neck: supple Resp Effort Inspection: normal respiratory effort Cardio Rate: regular rate GI Inspection: non-distended Palpation: soft, no hernias and tender in the epigastrum (mild); with no rebound tenderness Skin General: no rashes or lesions noted Neuro General: CN's II-XI intact bilaterally Extrem General: normal to inspection Psych Mental Status: mental status grossly normal Attitude: cooperative Assessment and Plan Assessment and Plan (1) Cholelithiases: Status: Acute (2) Abdominal pain: Status: Acute Orders: Orders Lipase Today K80.20 - Calculus of gallbladder without cholecystitis without obstruction Liver Profile Today K80.20 - Calculus of gallbladder without cholecystitis without obstruction Medications: New omeprazole swallow whole; do not crush, chew, dissolve, cut, break--take in PM due to levothyroxine 40 mg PO QDAY 30 caps 0RF Discontinued hydrocodone-acetam (more content not included)... [facility] Evaluation note Note Date & Type Note Facility Evaluation note Diagnosis Onset Date Resolution Other obesity acute May 30, 2025 2:55pm Encounter for routine gynecological examination noneactive May 30, 2025 2:55pm [facility] Work Phone: Hospital course Narrative Note Date & Type Note Facility Hospital course Narrative No data available for this section [facility] Hospital Discharge instructions Note Date & Type Note Facility Hospital Discharge instructions No data available for this section [facility] Progress note Note Date & Type Note Facility Progress note No data available for this section [facility] Reason for referral (narrative) Note Date & Type Note Facility Reason for referral (narrative) No reason for referral information available [facility] Work Phone: Summary Purpose Family History Relationship Condition Age at Onset Recorded Date/T maricruz grandmother Hypertension Unknown Malignant neoplasm of uterus Unknown Disorder of thyroid Unknown father Hypertension Unknown High blood cholesterol Unknown grandfather Malignant neoplasm of colon Unknown aunt Malignant neoplasm of breast Unknown Malignant neoplasm of skin Unknown Advance Directives No Advanced Directives Records FoundNo Advanced Directives Records FoundNo Advanced Directives Records FoundNo Advanced Directives Records FoundNo Advanced Directives Records Found Chief Complaint and Reason for Visit Chief Complaint Admit Date 2 ORDERING DOCTORS March 18, 2025 11:31 am INT LAB ORDERS May 30, 2025 1:4 7pm Annual (ARCHITECT INTERN) May 30, 2025 2:5 5pm Reason for Visit Admit Date Other obesity May 30, 2025 2:5 5pm Encounter for routine gynecological exam ination May 30, 2025 2:55pm Chief Complaint Admit Date 2 ORDERING DOCTORS March 18, 2025 11:31 am INT LAB ORDERS May 30, 2025 1:4 7pm Annual (ARCHITECT INTERN) May 30, 2025 2:5 5pm 1 M F/U *COPAY $20 July 04, 2025 12:47pm Reason for Visit Admit Date Other obesity May 30, 2025 2:5 5pm Encounter for routine gynecological exam ination May 30, 2025 2:55pm Other obesity July 04, 2025 12:47pm Chief Complaint Admit Date 2 ORDERING DOCTORS March 18, 2025 11:31 am INT LAB ORDERS May 30, 2025 1:4 7pm Annual (ARCHITECT INTERN) May 30, 2025 2:5 5pm 1 M F/U *COPAY $20 July 04, 2025 12:47pm EDUCATIONAL COORDINATOR EST CARE-WC PATIENT July 11, 025 9:20am Reason for Visit Admit Date Other obesity May 30, 2025 2:5 5pm Encounter for routine gynecological exam ination May 30, 2025 2:55pm Other obesity July 04, 2025 12:47pm Hypothyroidism due to Se's thyroi ditis July 04, 2025 12:47pm Metabolic syndrome July 04, 2025 12:47pm Vitamin D deficiency July 04, 2025 12:47pm Additional Source Comments INFORMATION SOURCE (unrecogn ized section and content) DATE CREATED AUTHOR 08/17/2021 [facility] DATE CREATED AUTHOR AUTHOR'S ORGANIZ ATION 09/16/2023 [facility] ([place]) DATE CREATED AUTHOR AUTHOR'S ORGANIZ ATION 02/20/2025 [facility] DATE CREATED AUTHOR AUTHOR'S ORGANIZ ATION 03/31/2025 [facility] DATE CREATED AUTHOR AUTHOR'S ORGANIZ ATION 07/11/2025 [facility] Patient Care team informatio n (unrecognized section and content) Team Status: Active Member Role/Relationship Status Dates Philomena Rosenberg NP, EDUCATIONAL COORDINATOR-C Primary Care Provider Active Team Status: Inactive Member Role/Relationship Status Dates Philomena Rosenberg NP, EDUCATIONAL COORDINATOR-C Primary Care Provider Active Start: March 18, 2025 End: March 18, 2025 Philomena Rosenberg NP, EDUCATIONAL COORDINATOR-C Attending Provider Active Start: March 18, 2025 End: March 18, 2025 Philomena Rosenberg NP, EDUCATIONAL COORDINATOR-C Referring Provider Active Start: March 18, 2025 End: March 18, 2025 Dr. Fredy Zhao MD Other Provider Active Start: March 18, 2025 End: March 18, 2025 Team Status: Active Member Role/Relationship Status Dates Philomena Rosenberg NP, EDUCATIONAL COORDINATOR-C Primary Care Provider Active Start: May 30, 2025 Dr. Fredy Zhao MD Attending Provider Active Sta rt: May 30, 2025 Dr. Fredy Zhao MD Referring Provider Active Sta rt: May 30, 2025 Team Status: Inactive Member Role/Relationship Status Dates Philomena Rosenberg EDUCATIONAL COORDINATOR, EDUCATIONAL COORDINATOR-C Primary Care Provider Active Start: May 30, 2025 End: May 30, 2025 Philomena Rosenberg EDUCATIONAL COORDINATOR, EDUCATIONAL COORDINATOR-C Referring Provider Active Start: May 30, 2025 End: May 30, 2025 Dr. Rubi Cantu MD Attending Provider Active Start: May 30, 2025 End: May 30, 2025 Team Status: Inactive Member Role/Relationship Status Dates Philomena Rosenberg EDUCATIONAL COORDINATOR, EDUCATIONAL COORDINATOR-C Primary Care Provider Active Start: May 30, 2025 End: May 30, 2025 Dr. Fredy Zhao MD Attending Provider Active Sta rt: May 30, 2025 End: May 30, 2025 Dr. Fredy Zhao MD Referring Provider Active Sta rt: May 30, 2025 End: May 30, 2025 Team Status: Inactive Member Role/Relationship Status Dates Philomena Rosenberg EDUCATIONAL COORDINATOR, EDUCATIONAL COORDINATOR-C Primary Care Provider Active Start: July 04, 2025 End: July 04, 2025 Philomena Rosenberg EDUCATIONAL COORDINATOR, EDUCATIONAL COORDINATOR-C Referring Provider Active Start: July 04, 2025 End: July 04, 2025 Dr. Rubi Cantu MD Attending Provider Active Start: July 04, 2025 End: July 04, 2025 Team Status: Inactive Member Role/Relationship Status Dates Philomena Rosenberg EDUCATIONAL COORDINATOR, EDUCATIONAL COORDINATOR-C Primary Care Provider Active Start: March 18, 2025 End: March 18, 2025 Philomena Rosenberg EDUCATIONAL COORDINATOR, EDUCATIONAL COORDINATOR-C Attending Provider Active Start: March 18, 2025 End: March 18, 2025 Philomena Rosenberg EDUCATIONAL COORDINATOR, EDUCATIONAL COORDINATOR-C Referring Provider Active Start: March 18, 2025 End: March 18, 2025 Dr. Fredy Zhao MD Other Provider Active Start: March 18, 2025 End: March 18, 2025 Team Status: Inactive Member Role/Relationship Status Dates Philomena Rosenberg EDUCATIONAL COORDINATOR, EDUCATIONAL COORDINATOR-C Primary Care Provider Active Start: May 30, 2025 End: May 30, 2025 Dr. Fredy Zhao MD Attending Provider Active Sta rt: May 30, 2025 End: May 30, 2025 Dr. Fredy Zhao MD Referring Provider Active Sta rt: May 30, 2025 End: May 30, 2025 Team Status: Inactive Member Role/Relationship Status Dates Philomena Rosenberg NP, EDUCATIONAL COORDINATOR-C Primary Care Provider Active Start: May 30, 2025 End: May 30, 2025 Philomena Rosenberg NP, EDUCATIONAL COORDINATOR-C Referring Provider Active Start: May 30, 2025 End: May 30, 2025 Dr. Rubi Cantu MD Attending Provider Active Start: May 30, 2025 End: May 30, 2025 Team Status: Inactive Member Role/Relationship Status Dates Philomena Rosenberg NP, EDUCATIONAL COORDINATOR-C Primary Care Provider Active Start: July 04, 2025 End: July 04, 2025 Philomena Rosenberg NP, EDUCATIONAL COORDINATOR-C Referring Provider Active Start: July 04, 2025 End: July 04, 2025 Dr. Rubi Cantu MD Attending Provider Active Start: July 04, 2025 End: July 04, 2025 Team Status: Active Member Role/Relationship Status Dates Philomena Rosenberg NP, EDUCATIONAL COORDINATOR-C Primary Care Provider Active Start: July 04, 2025 Dr. Rubi Cantu MD Attending Provider Active Start: July 04, 2025 Team Status: Inactive Member Role/Relationship Status Dates Dr. Judy Tapia MD Attending Provider Active Start: July 11, 2025 End: July 11, 2025 Goals (unrecognized section and content) Goals may be documented in a n alternate section FOR RECORDS PERTAINING TO PATIENTS WHO ARE OR HAVE BEEN ENROLLED IN A CHEMICAL DEPENDENCY/SUBSTANCEABUSE PROGRAM, SOME INFORMATION MAY BE OMITTED. This clinical summary was aggregated from multiple sources. Caution should be exercised in using it in the provision of clinical care. This summary normalizes information from multiple sources, and as a consequence, information in this document may materially change the coding, format and clinical context of patient data. In addition, data may be omitted in some cases. CLINICAL DECISIONS SHOULD BE BASED ON THE PRIMARY CLINICAL RECORDS. [employer] provides no warranty or guarantee of the accuracy or completeness of information in this document.
== END | disposition home or self-care (01) ==
LOC: BWCLAB 10:34
PROVIDERS: Referring Provider Obstetrics & Gynecology; Visit Provider Obstetrics & Gynecology
DX: Z13.79 Encounter for other screening for genetic and chromosomal anomalies (principal); Z80.0 Family history of malignant neoplasm of digestive organs; Z80.3 Family history of malignant neoplasm of breast; Z80.49 Family history of malignant neoplasm of other genital organs

== ENCOUNTER → 2025-07-24 | Outpatient (CLI) | payer SELFPAY | END | disposition home or self-care (01) | PROVIDERS: Referring Provider Obstetrics & Gynecology; Visit Provider Obstetrics & Gynecology | DX: E88.810 Metabolic syndrome (principal) | CPT/HCPCS: 76499 ==

== ENCOUNTER → 2025-08-22 | Outpatient (CLI) | payer OTHER, SELFPAY | END | disposition home or self-care (01) | LOC: LAB 09:10 | PROVIDERS: PCP Internal Medicine; Referring Provider Internal Medicine Endocrinology, Diabetes & Metabolism; Visit Provider Internal Medicine Endocrinology, Diabetes & Metabolism | DX: E06.3 Autoimmune thyroiditis (principal) | CPT/HCPCS: 36415; 84439; 84443 ==

== ENCOUNTER → 2025-10-03 | Outpatient (CLI) | payer OTHER, SELFPAY | END | disposition home or self-care (01) | PROVIDERS: PCP Internal Medicine; Referring Provider Internal Medicine Endocrinology, Diabetes & Metabolism; Visit Provider Internal Medicine Endocrinology, Diabetes & Metabolism | DX: E06.3 Autoimmune thyroiditis (principal) | CPT/HCPCS: 36415; 84443 ==

== ENCOUNTER → 2025-10-07 | Outpatient (CLI) | payer OTHER, SELFPAY ==
--- NOTE | 2025-10-07 12:15 | BI_ITS ---
EXAM: SCRN MAMM (CAD)W/SAMUEL BILAT DATE: 10/07/2025 CLINICAL HISTORY: F, Age 40 y/o , SCREENING Aunt with breast cancer. TECHNIQUE: Procedure Code: [id number] Modality: MG Procedure: SCRN MAMM (CAD)W/SAMUEL BILAT COMPARISON: Prior exam(s) dated September 19, 2024.. FINDINGS: TISSUE DENSITY: The breasts are extremely dense, which lowers the sensitivity of mammography. Bilateral Breast Mammographic Findings: 1.5 cm by 2 cm well-defined nodule in the slightly upper medial portion of the left breast. Sonographic correlation recommended. BI/SCRN MAMM (CAD)W/SAMUEL BILAT IMPRESSION: 1.5 cm x 2 cm well-defined nodule in the slightly upper medial portion of the l eft breast. Sonographic correlation recommended. OVERALL FINAL ASSESSMENT BI-RADS 0: INCOMPLETE - NEED ADDITIONAL IMAGING EVALUATION. RECOMMENDATION: Ultrasound Recommended Additional Recommendation none A letter with findings and recommendations will be mailed to the patient. Reading Location: [place] [id number]
== END | disposition home or self-care (01) ==
LOC: OPBI 12:02
PROVIDERS: PCP Internal Medicine; Referring Provider Obstetrics & Gynecology; Visit Provider Obstetrics & Gynecology
DX: Z12.31 Encounter for screening mammogram for malignant neoplasm of breast (principal)
CPT/HCPCS: 77063; 77067

== ENCOUNTER → 2025-10-08 | Outpatient (CLI) | payer OTHER, SELFPAY ==
[2025-10-08 12:23] LABS: Hematocrit 38.4 % (37-47); Hemoglobin 13.1 g/dL (12.0-15.0); Immature Granulocytes Count 0.010 X10^3/uL (0.0-0.0); Mean Corp Hgb Conc 34.1 g/dL (32-36); Mean Corpuscular Volume 93.4 fL (81-99); Mean Platelet Vol. 9.5 fl (6.2-12.0); NRBC Flagged by Analyzer 0 % (0-5); Platelet Count 227 K/mm3 (150-450); RBC Distribution Width CV 12.2 % (11.6-14.6); RBC Distribution Width SD 42.2 fl (35.1-43.9); Red Blood Count 4.11 M/mm3 (4.2-5.4); White Blood Count 5.2 K/mm3 (4.4-11.0)
[2025-10-08 13:13] LABS: AST(SGOT) 14 U/L (<=31); Alanine Aminotransfer ALT/SGPT 12 U/L (<=34); Albumin, Serum 4.4 g/dL (3.5-5.0); Alkaline Phosphatase 33 U/L (35-104); Anion Gap 11 (5-15); BUN 9 mg/dL (4-19); BUN/Creat Ratio 10.7 RATIO (10-20); Calcium,Total 9.4 mg/dL (7.6-11.0); Carbon Dioxide 26.2 mmol/L (21.0-32.0); Chloride 103 mmol/L (98-108); Globulin 2.4 g/dL (2.2-4.2); Glucose 89 mg/dL (70-99); Potassium 4.3 mmol/L (3.3-5.1)
== END | disposition home or self-care (01) ==
PROVIDERS: PCP Internal Medicine; Visit Provider Nurse Practitioner Family
DX: E66.89 Other obesity not elsewhere classified (principal)
CPT/HCPCS: 36415; 80053; 85025

== ENCOUNTER → 2025-10-16 | Outpatient (CLI) | payer OTHER, SELFPAY ==
--- NOTE | 2025-10-16 12:21 | US_ITS ---
PROCEDURE: BREAST LIMITED UNILATERAL 10/16/2025 REASON FOR EXAM: F, Age 40 y/o , ABN MAMM COMPARISON: Prior mammogram dated October 07, 2025.. TECHNIQUE: Procedure Code: [id number] Modality: US Procedure: BREAST LIMITED UNILATERAL. Targeted ultrasound of the upper medial quadrant of the left breast was performed. FINDINGS: There is a 2 cm x 2.2 cm x 1.2 cm well-defined hypoechoic nodule at the 12 o'clock position of the breast at 3 cm from the nipple. This may represent a fibroadenoma. Biopsy recommended. There is also evidence of 3 subcentimeter cysts seen at the 9, 10 and 11 o'clock position of the breast. The largest cyst measures 9 mm x 8 mm x 4 mm. US/Breast Limited Unilateral IMPRESSION: The mammographic abnormality corresponds to a 2 cm 2.2 cm 1.2 cm well-defined h ypoechoic nodule at the 12 o'clock position of the breast at 3 cm from the nipple. This most likely represents a fibroadenoma. B iopsy is recommended. There are 3 subcentimeter at the 910 and 11 o'clock position of the left breast . BI-RADS 4: SUSPICIOUS RECOMMENDATION: Biopsy Recommended Reading Location: [facility]
== END | disposition home or self-care (01) ==
LOC: OPUS 12:19
PROVIDERS: PCP Internal Medicine; Referring Provider Obstetrics & Gynecology; Visit Provider Obstetrics & Gynecology
DX: R92.8 Other abnormal and inconclusive findings on diagnostic imaging of breast (principal)
CPT/HCPCS: 76642